=== PATIENT | female | born 1975 | race Caucasian/White ===

== ENCOUNTER 2017-11-25 16:25 | Emergency (ER) | payer OTHER ==
[~2017-11-25] VITALS: Ht 180.3 cm; Wt 181.4 kg
[2017-11-25] MEDS ORDERED: DIPHTH,PERTUSS(ACELL),TET TOX 0.5 ML DISP.SYRIN. VAX IM ONE (17:00)
[2017-11-25] MEDS ORDERED: IV NORMAL SALINE 1000ML BAG 1,000 ML IV ONE (17:00)
[2017-11-25] MEDS ORDERED: ACETAMINOPHEN 500 MG TABLET PO ONE (17:00)
--- NOTE | 2017-11-25 17:06 | RAD ---
AP portable chest radiograph 11/25/2017 Clinical History: Hypertension. An AP erect portable digital radiograph of the chest was obtained. No previous studies are available for comparison. The cardiac and mediastinal silhouettes are within normal limits in size and configuration. No acute pulmonary infiltrate is seen. No pleural effusion or pneumothorax is noted. Mild degenerative changes are seen involving the thoracic spine. IMPRESSION: No acute abnormality is seen. Electronically signed by: Gino Bermeo MD (11/25/2017 5:03 PM) [facility]
--- NOTE | 2017-11-25 17:12 | PHYS DOC ---
Past Medical History Past Medical History: Hypertension, Hypothyroid Alcohol Use: None Drug Use: None Adult General Chief Complaint Chief Complaint: HYPERTENSION HPI HPI Patient is a 42 year old female with history of hypertension, hypothyroidism, who presents today complaining of high blood pressure. Patient states she was at urgent care being evaluated for a skin infection on her right lower abdomen, patient states they took her blood pressure which was 184/110. Patient states they decided to send that to the emergency room to be evaluated. Patient states she is on high blood pressure medication, unknown name. She states she's had a headache for a couple days but it is not an unusual headache for her. She states she gets headaches intermittently throughout her life. She rates her headache as 5 out of 10 described it as throbbing and just generalized. Patient also states she has chronic chest pain. Patient states there is nothing unusual about her chest pain today. Describes the pain as sharp and generalized throughout the chest area. Denies anything exacerbating or making the pain better. She rates the chest pain as 5/10. Review of Systems Review of Systems Constitutional: Denies fever or chills [] Eyes: Denies change in visual acuity, redness, or eye pain [] HENT: Denies nasal congestion or sore throat [] Respiratory: Denies cough or shortness of breath [] Cardiovascular: Reports chest pain chronic in nature, high blood pressure GI: Denies abdominal pain, nausea, vomiting, bloody stools or diarrhea [] : Denies dysuria or hematuria [] Musculoskeletal: Denies back pain or joint pain [] Integument: Reports skin infection to the right lower abdomen Neurologic: Denies headache, focal weakness or sensory changes [] All other systems were reviewed and found to be within normal limits, except as documented in this note. Current Medications Current Medications Current Medications Medications (Trade) Dose Ordered Sig/Brandee Start Time Stop Time Status Last Admin Dose Admin Acetaminophen (Tylenol) 1,000 mg 1X ONCE 11/25/17 17:00 11/25/17 17:01 DC 11/25/17 17:34 1,000 MG Ceftriaxone Sodium 50 ml @ 100 mls/hr 1X ONCE 11/25/17 17:00 11/25/17 17:29 DC 11/25/17 17:35 100 MLS/HR Diphtheria/ Tetanus/Acell Pertussis (Boostrix) 0.5 ml ONCE ONCE 11/25/17 17:00 8/8/18 17:01 DC 11/25/17 17:36 0.5 ML Sodium Chloride 1,000 ml @ 1,000 mls/hr 1X ONCE 11/25/17 17:00 11/25/17 17:59 DC 11/25/17 17:34 1,000 MLS/HR Allergies Allergies Allergies Coded Allergies Type Severity Reaction Last Updated Verified amlodipine Allergy Intermediate Swelling 11/25/17 Yes biotin Allergy Intermediate Rash 11/25/17 Yes phentermine Adverse Reaction Mild agitation 11/25/17 Yes Physical Exam Physical Exam Constitutional: Obese patient. Well developed, well nourished, no acute distress , non-toxic appearance. [] HENT: Normocephalic, atraumatic, bilateral external ears normal, oropharynx moist, no oral exudates, nose normal. [] Eyes: PERRLA, EOMI, conjunctiva normal, no discharge. [] Neck: Normal range of motion, no tenderness, supple, no stridor. [] Cardiovascular:Heart rate regular rhythm, no murmur [] Lungs & Thorax: Bilateral breath sounds clear to auscultation [] Abdomen: Bowel sounds normal, soft, no tenderness, no masses, no pulsatile masses. [] Skin: Warm, dry, right lower abdomen with an erythematous lesion approximately 1 x 1 cm, there is an area of erythema surrounding this lesion consistent with skin peeling from tape that got infected. Patient states she had dressing over the area when she took the dressing off her skin peeled off and has turned red over time. Back: No tenderness, no CVA tenderness. [] Extremities: No tenderness, no cyanosis, no clubbing, ROM intact, no edema. [] Neurologic: Alert and oriented X 3, normal motor function, normal sensory function, no focal deficits noted. [] Psychologic: Affect normal, judgement normal, mood normal. [] Current Patient Data Vital Signs Vital Signs Date Time Temp Pulse Resp B/P (MAP) Pulse Ox O2 Delivery O2 Flow Rate FiO2 11/25/17 18:40 88 22 96 11/25/17 16:36 98.3 173/84 (113) Room Air 98.3 Lab Values Laboratory Tests Test 11/25/17 17:23 White Blood Count 16.6 x10^3/uL (4.0-11.0) H Red Blood Count 5.25 x10^6/uL (3.50-5.40) Hemoglobin 12.8 g/dL (12.0-15.5) Hematocrit 39.4 % (36.0-47.0) Mean Corpuscular Volume 75 fL (79-100) L Mean Corpuscular Hemoglobin 24 pg (25-35) L Mean Corpuscular Hemoglobin Concent 32 g/dL (31-37) Red Cell Distribution Width 16.3 % (11.5-14.5) H Platelet Count 331 x10^3/uL (140-400) Neutrophils (%) (Auto) 67 % (31-73) Lymphocytes (%) (Auto) 27 % (24-48) Monocytes (%) (Auto) 4 % (0-9) Eosinophils (%) (Auto) 1 % (0-3) Basophils (%) (Auto) 1 % (0-3) Neutrophils # (Auto) 11.2 x10^3uL (1.8-7.7) H Lymphocytes # (Auto) 4.5 x10^3/uL (1.0-4.8) Monocytes # (Auto) 0.6 x10^3/uL (0.0-1.1) Eosinophils # (Auto) 0.2 x10^3/uL (0.0-0.7) Basophils # (Auto) 0.1 x10^3/uL (0.0-0.2) Sodium Level 140 mmol/L (136-145) Potassium Level 3.6 mmol/L (3.5-5.1) Chloride Level 103 mmol/L (98-107) Carbon Dioxide Level 29 mmol/L (21-32) Anion Gap 8 (6-14) Blood Urea Nitrogen 13 mg/dL (7-20) Creatinine 0.9 mg/dL (0.6-1.0) Estimated GFR (Cockcroft-Gault) 69.3 Glucose Level 135 mg/dL (70-99) H Calcium Level 9.1 mg/dL (8.5-10.1) Magnesium Level 1.9 mg/dL (1.8-2.4) Creatine Kinase 74 U/L (26-192) Creatine Kinase MB (Mass) 0.5 ng/mL (0.0-3.6) Creatine Kinase MB Relative Index % (0-4) Troponin I Quantitative < 0.017 ng/mL (0.000-0.055) BM-Bts-E-Type Natriuretic Peptide 47 pg/mL (0-124) Thyroid Stimulating Hormone (TSH) 2.547 uIU/mL (0.358-3.74) Laboratory Tests 11/25/17 17:23 Laboratory Tests 11/25/17 17:23 EKG EKG 16:[address] Rodriguez sinus tachycardia heart rate 103 no STEMI Radiology/Procedures Radiology/Procedures []PROCEDURE: PORTABLE CHEST 1V AP portable chest radiograph 11/25/2017 Clinical History: Hypertension. An AP erect portable digital radiograph of the chest was obtained. No previous studies are available for comparison. The cardiac and mediastinal silhouettes are within normal limits in size and configuration. No acute pulmonary infiltrate is seen. No pleural effusion or pneumothorax is noted. Mild degenerative changes are seen involving the thoracic spine. IMPRESSION: No acute abnormality is seen. Electronically signed by: Gino Beach MD (11/25/2017 5:03 PM) [facility] DICTATED and SIGNED BY: GINO BEACH MD DATE: 11/25/171700 Course & Med Decision Making Course & Med Decision Making Pertinent Labs and Imaging studies reviewed. (See chart for details) This is a 42-year-old female patient presenting to the ED today to be evaluated for hypertension. He shouldn't was at urgent care being treated for skin infection when they noted her blood pressure was 184/110, she has history of hypertension. She was complaining of a headache which she states it's chronic as well as chest pain which she states is chronic as well. Blood pressure was 173/84 and arrival to the ED. EKG is negative. CBC with a WBC of 16.6, this is from the cellulitis infection patient has on the right lower abdomen. BMP with no acute findings. Urine analysis is negative for infection. Chest x-ray is negative. Blood pressure came down to 150s over 80s. Headache has resolved. Talked to patient about admission versus discharge. Patient states the chest pain as well as headache is chronic. She was discharged with Bactroban ointment for the cellulitis. She has cephalexin she got that from urgent care this morning. Tetanus updated. Provided return precautions. Dragon Disclaimer Dragon Disclaimer This electronic medical record was generated, in whole or in part, using a voice recognition dictation system. Departure Departure Impression: Primary Impression: Hypertension Additional Impressions: Cellulitis of abdominal wall Chronic chest pain Chronic headache Disposition: 01 HOME, SELF-CARE Condition: STABLE Referrals: UNKNOWN PCP NAME (PCP) Patient Instructions: Cellulitis, [id number], Hypertension Additional Instructions: You were evaluated in the emergency room for hypertension. Continue taking your medications as prescribed at home. Please use the prescribed cephalexin as well as the prescribed Bactroban ointment over year skin infection on the abdomen. Scripts Mupirocin Calcium (BACTROBAN CREAM) 15 Gm Cream..g. 1 GIANCARLO TP TID, #30 GM Prov: DENAE DANIEL APRN 11/25/17 Problem Qualifiers Primary Impression: Hypertension Hypertension type: unspecified Qualified Codes: I10 - Essential (primary) hypertension Additional Impressions: Chronic headache Headache type: unspecified Intractability: not intractable Qualified Codes : R51 - Headache DENAE DANIEL APRN Nov 25, 2017 17:12
[2017-11-25 17:32] LABS: BASO # 0.1 x10^3/uL (0.0-0.2); BASO % 1 % (0-3); EOS # 0.2 x10^3/uL (0.0-0.7); EOS % 1 % (0-3); HEMATOCRIT 39.4 % (36.0-47.0); HEMOGLOBIN 12.8 g/dL (12.0-15.5); LYMPH # 4.5 x10^3/uL (1.0-4.8); LYMPH % 27 % (24-48); MEAN CORPUSCULAR HEMOGLOBIN 24 pg (25-35); MEAN CORPUSCULAR HGB CONC 32 g/dL (31-37); MEAN CORPUSCULAR VOLUME 75 fL (79-100); MONO # 0.6 x10^3/uL (0.0-1.1); MONO % 4 % (0-9); NEUT # 11.2 x10^3uL (1.8-7.7); NEUT % 67 % (31-73); PLATELET COUNT 331 x10^3/uL (140-400); RED BLOOD COUNT 5.25 x10^6/uL (3.50-5.40); RED CELL DISTRIBUTION WIDTH 16.3 % (11.5-14.5); WHITE BLOOD COUNT 16.6 x10^3/uL (4.0-11.0)
[2017-11-25 17:55] LABS: CALCIUM 9.1 mg/dL (8.5-10.1); CREATININE 0.9 mg/dL (0.6-1.0); GFR 69.3; POTASSIUM 3.6 mmol/L (3.5-5.1)
[2017-11-25 17:56] LABS: MAGNESIUM 1.9 mg/dL (1.8-2.4)
[2017-11-25 18:10] LABS: CREATINE KINASE 74 U/L (26-192)
[2017-11-25 18:35] LABS: BILIRUBIN,URINE NEGATIVE (NEG); CLARITY,URINE CLEAR; COLOR,URINE YELLOW; NITRITE,URINE NEGATIVE (NEG); PROTEIN,URINE NEGATIVE (NEG-TRACE); UROBILINOGEN,URINE 0.2 mg/dL (0.2 mg/dL)
[2017-11-25 18:40] VITALS: BP 159/79
[2017-11-25 18:48] LABS: BARBITURATES NEG (NEG); BENZODIAZEPINES NEG (NEG); CANNABINOIDS POS (NEG); COCAINE NEG (NEG); METHADONE NEG (NEG); OPIATES POS (NEG); PHENCYCLIDINE NEG (NEG)
[2017-11-25 18:51] LABS: BACTERIA,URINE 0 /HPF (0-FEW); RBC,URINE 0 /HPF (0-2); SQUAMOUS EPITHELIAL CELL,UR FEW /LPF; WBC,URINE RARE /HPF (0-4)
[2017-11-25 18:52] LABS: AMPHETAMINE/METHAMPHETAMINE NEG (NEG)
[2017-11-25] MEDS ORDERED: MUPI15CR TP (18:53)
--- NOTE | 2017-11-26 07:38 | EKG ---
[facility] [address] [place] [address] Test Date: 2017-11-25 Test Time: 16:40:06 Pat Name: ELYSE AMBRIZ Department: Room: Gender: F Laborer Operator: : 1975 Requested By: DENAE DANIEL Order Number: [id number] Reading MD: Measurements Intervals [place] Rate: 103 P: 12 OR: 136 QRS: 30 QRSD: 84 T: 14 QT: 352 QTc: 463 Interpretive Statements SINUS TACHYCARDIA NO SPECIFIC ECG ABNORMALITIES RI6.01 No previous ECG available for comparison
== END 2017-11-25 19:07 | disposition home or self-care (01) ==
LOC: ER 16:25
DX: I10 Essential (primary) hypertension (principal); G89.29 Other chronic pain; R07.89 Other chest pain; R51 Headache; L03.311 Cellulitis of abdominal wall; E03.9 Hypothyroidism, unspecified
CPT/HCPCS: 36415; 71045; 80048; 80307; 81001; 82553; 83735; 83880; 84443; 84484; 85025; 90471; 90715; 93005; 96365; 99285; J0690; J7030; G0479

== ENCOUNTER → 2018-05-13 | Outpatient (CLI) | payer OTHER ==
[~2018-05-13] MED LIST: MUPI15CR TP
--- NOTE | 2018-05-13 15:20 | PCVCIMAG ---
APPROVED REPORT Study performed: 05/13/2018 13:42:01 EXAM: Comprehensive 2D, Doppler, and color-flow Echocardiogram Patient Location: Echo lab Status: routine BSA: 2.82 HR: 78 bpmBP: 144/100 mmHg Rhythm: NSR Other Information Study Quality: Adequate Technically limited study due to body habitus. Risk Factors: Cardiac Risk Factors: HTN Indications Hypertension/HDD 2D Dimensions IVSd: 13.45 (7-11mm)LVOT Diam: 20.00 (18-24mm) LVDd: 46.25 mm PWd: 13.42 (7-11mm)Ascending Ao: 32.55 (22-36mm) LVDs: 31.13 (25-40mm) Left Atrium: 38.92 (27-40mm) Aortic Root: 29.75 mm LV Single Plane 4CH: 50.64 % LV Single Plane 2CH: 46.04 % Biplane EF: 48.7 % Volumes Left Atrial Volume (Systole) Single Plane 4CH: 41.98 mLSingle Plane 2CH: 41.49 mL LA ESV Index: 18.00 mL/m2 Aortic Valve AoV Peak Vladimir.: 1.25 m/s AO Peak Gr.: 6.20 mmHgLVOT Max P.03 mmHg LVOT Max V: 1.00 m/s EMILIA Vmax: 2.55 cm2 Mitral Valve E/A Ratio: 1.5 MV Decel. Time: 176.61 ms MV E Max Vladimir.: 1.11 m/s MV A Vladimir.: 0.76 m/s IVRT: 62.28 ms Pulmonary Valve PV Peak Vladimir.: 0.91 m/sPV Peak Gr.: 3.31 mmHg Pulmonary Vein P Vein S: 0.34 m/sP Vein A: 0.31 m/s P Vein D: 0.35 m/sP Vein A Dur.: 100.3 msec P Vein S/D Ratio: 0.97 Tricuspid Valve RAP Estimate: 7.00 mmHg Left Ventricle The left ventricle is normal size. There is normal LV segmental wall motion. Moderate concentric left ventricular hypertrophy. Left ventricular systolic function is normal. The left ventricular ejection fraction is within the normal range. LVEF is 50-55%. The left ventricular diastolic function is normal. Right Ventricle The right ventricle is normal size. The right ventricular systolic function is normal. Atria The left atrium size is normal. The right atrium size is normal. Aortic Valve The aortic valve is normal in structure. No aortic regurgitation is present. There is no aortic valvular stenosis. Mitral Valve The mitral valve is normal in structure. Trace mitral regurgitation. No evidence of mitral valve stenosis. Tricuspid Valve The tricuspid valve is normal in structure. There is no tricuspid valve regurgitation noted. Pulmonic Valve The pulmonary valve is normal in structure. There is no pulmonic valvular regurgitation. Great Vessels The aortic root is normal in size. IVC is normal in size and collapses >50% with inspiration. Pericardium There is no pericardial effusion. <Conclusion> The left ventricle is normal size. Moderate concentric left ventricular hypertrophy. LVEF is 50-55%. The left ventricular diastolic function is normal. The right ventricle is normal size. The left atrium size is normal. The aortic valve is normal in structure. Trace mitral regurgitation. There is no tricuspid valve regurgitation noted. The aortic root is normal in size. There is no pericardial effusion.
== END | disposition home or self-care (01) ==
LOC: PCVCIMAG 13:45
PROVIDERS: ATTEND Family Medicine
DX: I10 Essential (primary) hypertension (principal)
CPT/HCPCS: 93306

== ENCOUNTER → 2019-01-14 | Outpatient (CLI) | payer OTHER ==
--- NOTE | 2019-01-18 14:12 | PCVCIMAG ---
APPROVED REPORT Study performed: 01/14/2019 10:39:58 EXAM: Comprehensive 2D, Doppler, and color-flow Echocardiogram Patient Location: Echo lab Status: routine BSA: 2.70 HR: 73 bpmBP: 140/90 mmHg Rhythm: NSR Other Information Study Quality: Adequate Technically limited study due to body habitus. Risk Factors: Cardiac Risk Factors: HTN Indications Dyspnea obesity, LVH 2D Dimensions IVSd: 13.88 (7-11mm) LVDd: 48.28 mm PWd: 13.23 (7-11mm)Ascending Ao: 34.50 (22-36mm) LVDs: 36.98 (25-40mm) Left Atrium: 38.79 (27-40mm) Aortic Root: 33.35 mm LV Single Plane 4CH: 47.59 % LV Single Plane 2CH: 50.13 % Biplane EF: 48.5 % Volumes Left Atrial Volume (Systole) Single Plane 4CH: 55.89 mLSingle Plane 2CH: 60.22 mL LA ESV Index: 22.00 mL/m2 Aortic Valve AoV Peak Vladimir.: 1.55 m/s AO Peak Gr.: 9.62 mmHgLVOT Max P.91 mmHg LVOT Max V: 1.11 m/s Mitral Valve E/A Ratio: 1.8 MV Decel. Time: 239.27 ms MV E Max Vladimir.: 0.86 m/s MV A Vladimir.: 0.48 m/s IVRT: 103.81 ms Pulmonary Valve PV Peak Vladimir.: 0.90 m/sPV Peak Gr.: 3.22 mmHg Pulmonary Vein P Vein S: 0.53 m/sP Vein A: 0.34 m/s P Vein D: 0.69 m/sP Vein A Dur.: 145.3 msec P Vein S/D Ratio: 0.77 Tricuspid Valve TR Peak Vladimir.: 2.91 m/s TR Peak Gr.: 33.81 mmHg Left Ventricle The left ventricle is normal size. There is normal LV segmental wall motion. Mild concentric left ventricular hypertrophy. Left ventricular systolic function is within lower limits of normal. LVEF is 50-55%. Right Ventricle The right ventricle is normal size. The right ventricular systolic function is normal. Atria The left atrium size is normal. The right atrium size is normal. Aortic Valve The aortic valve is normal in structure. No aortic regurgitation is present. There is no aortic valvular stenosis. Mitral Valve The mitral valve is normal in structure. There is no mitral valve regurgitation noted. No evidence of mitral valve stenosis. Tricuspid Valve The tricuspid valve is normal in structure. Mild tricuspid regurgitation with PAP of 41 mmHg. Pulmonic Valve The pulmonary valve is normal in structure. There is no pulmonic valvular regurgitation. Great Vessels The aortic root is normal in size. IVC is normal in size and collapses >50% with inspiration. Pericardium There is no pericardial effusion. There is no pleural effusion. <Conclusion> The left ventricle is normal size. Left ventricular systolic function is within lower limits of normal. LVEF is 50-55%. The right ventricle is normal size. The left atrium size is normal. The aortic valve is normal in structure. There is no mitral valve regurgitation noted. Mild tricuspid regurgitation with PAP of 41 mmHg. The aortic root is normal in size. There is no pericardial effusion.
== END | disposition home or self-care (01) ==
LOC: PCVCIMAG 10:51
PROVIDERS: ATTEND Internal Medicine Cardiovascular Disease
DX: I07.1 Rheumatic tricuspid insufficiency (principal); E66.9 Obesity, unspecified; I10 Essential (primary) hypertension
CPT/HCPCS: 93306

== ENCOUNTER 2019-01-21 18:18 | Inpatient (IN) | payer OTHER ==
[~2019-01-21] VITALS: Ht 182.9 cm; Wt 147.5 kg
[2019-01-21] MEDS ORDERED: fentaNYL PF VIAL 100 MCG/2 ML VIAL IV ONE (19:30)
[2019-01-21] MEDS ORDERED: IV NORMAL SALINE 1000ML BAG 1,000 ML IV ONE (19:30)
[2019-01-21] MEDS ORDERED: IV NORMAL SALINE 500ML BAG 500 ML IV ONE (19:30)
[2019-01-21] MEDS ORDERED: fentaNYL PF VIAL 100 MCG/2 ML VIAL ONE (19:36)
[2019-01-21 19:38] LABS: BASO % 0 % (0-3); EOS # 0.1 x10^3/uL (0.0-0.7); EOS % 1 % (0-3); HEMATOCRIT 37.2 % (36.0-47.0); HEMOGLOBIN 12.1 g/dL (12.0-15.5); LYMPH # 3.6 x10^3/uL (1.0-4.8); LYMPH % 19 % (24-48); MEAN CORPUSCULAR HEMOGLOBIN 26 pg (25-35); MEAN CORPUSCULAR HGB CONC 33 g/dL (31-37); MEAN CORPUSCULAR VOLUME 80 fL (79-100); MONO # 1.5 x10^3/uL (0.0-1.1); MONO % 8 % (0-9); NEUT # 14.3 x10^3/uL (1.8-7.7); NEUT % 73 % (31-73); PLATELET COUNT 407 x10^3/uL (140-400); RED BLOOD COUNT 4.62 x10^6/uL (3.50-5.40); RED CELL DISTRIBUTION WIDTH 14.5 % (11.5-14.5); WHITE BLOOD COUNT 19.6 x10^3/uL (4.0-11.0)
[2019-01-21 19:45] LABS: PROTHROMBIN TIME PATIENT 15.4 SEC (11.7-14.0)
[2019-01-21 19:46] LABS: CALCIUM 9.8 mg/dL (8.5-10.1); GFR 27.5; POTASSIUM 3.7 mmol/L (3.5-5.1)
[2019-01-21 19:52] LABS: ALBUMIN 2.6 g/dL (3.4-5.0); ALBUMIN/GLOBULIN RATIO 0.5 (1.0-1.7); TOTAL BILIRUBIN 0.3 mg/dL (0.2-1.0); TOTAL PROTEIN 7.5 g/dL (6.4-8.2)
[2019-01-21 19:54] LABS: BILIRUBIN,URINE SMALL (NEG); CLARITY,URINE CLEAR; COLOR,URINE AMBER; NITRITE,URINE NEGATIVE (NEG); PROTEIN,URINE 30 mg/dL (NEG-TRACE)
[2019-01-21 19:59] LABS: SQUAMOUS EPITHELIAL CELL,UR MANY /LPF
--- NOTE | 2019-01-21 19:59 | PHYS DOC ---
Past Medical History Past Medical History: Hypertension, Hypothyroid Past Surgical History: Other Additional Past Surgical Histo: GASTRIC SLEEVE Alcohol Use: None Drug Use: None Adult General Chief Complaint Chief Complaint: SHORTNESS OF BREATH HPI HPI Patient is a 43 year old female who is one month status post a gastric sleeve at [facility] in [place] coming in basically referred in by primary doctor due to a finding of fluid on the lungs on her recent CT scan that was done on Thursday in addition the white blood cell count was up in the kidney function was decreased patient has a past medical history of obesity hypertension or allergic to Zoloft and amlodipine meds now include doxycycline Bystolic and hydrochlorothiazide patient has had nausea no fever she also is noting some dull bilateral flank pain comes and goes better with lying flat dry cough no fever that she knows of she has had decreased by mouth intake positive nausea no vomiting no diarrhea. Review of Systems Review of Systems Constitutional: Denies fever or chills [] Eyes: Denies change in visual acuity, redness, or eye pain [] HENT Respiratory: Neurologic: Denies headache, focal weakness or sensory changes [] Endocrine: Denies polyuria or polydipsia [] All other systems were reviewed and found to be within normal limits, except as documented in this note. Current Medications Current Medications Current Medications Medications (Trade) Dose Ordered Sig/Brandee Start Time Stop Time Status Last Admin Dose Admin Ceftriaxone Sodium (Rocephin) 1 gm 1X ONCE 01/21/19 20:00 01/21/19 20:07 DC Fentanyl Citrate (Fentanyl 2ml Vial) 50 mcg PRN Q1HR PRN 01/21/19 21:00 01/22/19 20:59 UNV Sodium Chloride 1,000 ml @ 100 mls/hr Q10H 01/21/19 20:51 01/22/19 20:50 UNV Allergies Allergies Allergies Coded Allergies Type Severity Reaction Last Updated Verified amlodipine Allergy Intermediate Swelling 11/25/17 Yes biotin Allergy Intermediate Rash 11/25/17 Yes phentermine Adverse Reaction Mild agitation 11/25/17 Yes Physical Exam Physical Exam Constitutional: Well developed, well nourished, no acute distress, non-toxic appearance. [] HENT: Normocephalic, atraumatic, bilateral external ears normal, dry oropharynx, no oral exudates, nose normal. [] Eyes: PERRLA, EOMI, conjunctiva normal, no discharge. [] Neck: Normal range of motion, no tenderness, supple, no stridor. [] Cardiovascular:Heart rate regular rhythm, no murmur [] Lungs & Thorax: Decreased process the left lung base Abdomen: Bowel sounds normal, soft, no tenderness, no masses, no pulsatile masses. [] Skin: Warm, dry, no erythema, no rash. [] Back: No tenderness, no CVA tenderness. [] Extremities: No tenderness, no cyanosis, no clubbing, ROM intact, no edema. [] Neurologic: Alert and oriented X 3, normal motor function, normal sensory function, no focal deficits noted. [] Psychologic: Affect normal, judgement normal, mood normal. [] Current Patient Data Vital Signs Vital Signs Date Time Temp Pulse Resp B/P (MAP) Pulse Ox O2 Delivery O2 Flow Rate FiO2 01/21/19 19:42 18 97 Room Air 01/21/19 19:00 98.7 80 88/58 (68) 98.7 Lab Values Laboratory Tests Test 01/21/19 19:15 01/21/19 19:40 01/21/19 19:46 White Blood Count 19.6 x10^3/uL (4.0-11.0) H Red Blood Count 4.62 x10^6/uL (3.50-5.40) Hemoglobin 12.1 g/dL (12.0-15.5) Hematocrit 37.2 % (36.0-47.0) Mean Corpuscular Volume 80 fL (79-100) Mean Corpuscular Hemoglobin 26 pg (25-35) Mean Corpuscular Hemoglobin Concent 33 g/dL (31-37) Red Cell Distribution Width 14.5 % (11.5-14.5) Platelet Count 407 x10^3/uL (140-400) H Neutrophils (%) (Auto) 73 % (31-73) Lymphocytes (%) (Auto) 19 % (24-48) L Monocytes (%) (Auto) 8 % (0-9) Eosinophils (%) (Auto) 1 % (0-3) Basophils (%) (Auto) 0 % (0-3) Neutrophils # (Auto) 14.3 x10^3/uL (1.8-7.7) H Lymphocytes # (Auto) 3.6 x10^3/uL (1.0-4.8) Monocytes # (Auto) 1.5 x10^3/uL (0.0-1.1) H Eosinophils # (Auto) 0.1 x10^3/uL (0.0-0.7) Basophils # (Auto) 0.0 x10^3/uL (0.0-0.2) Segmented Neutrophils % 74 % (35-66) H Band Neutrophils % 1 % (0-9) Lymphocytes % 17 % (24-48) L Monocytes % 8 % (0-10) Platelet Estimate Adequate (ADEQUATE) Prothrombin Time 15.4 SEC (11.7-14.0) H Prothrombin Time INR 1.3 (0.8-1.1) H Sodium Level 138 mmol/L (136-145) Potassium Level 3.7 mmol/L (3.5-5.1) Chloride Level 100 mmol/L (98-107) Carbon Dioxide Level 26 mmol/L (21-32) Anion Gap 12 (6-14) Blood Urea Nitrogen 53 mg/dL (7-20) H Creatinine 2.0 mg/dL (0.6-1.0) H Estimated GFR (Cockcroft-Gault) 27.5 BUN/Creatinine Ratio 27 (6-20) H Glucose Level 103 mg/dL (70-99) H Lactic Acid Level 0.6 mmol/L (0.4-2.0) Calcium Level 9.8 mg/dL (8.5-10.1) Total Bilirubin 0.3 mg/dL (0.2-1.0) Aspartate Amino Transferase (AST) 11 U/L (15-37) L Alanine Aminotransferase (ALT) 15 U/L (14-59) Alkaline Phosphatase 120 U/L (46-116) H Troponin I Quantitative < 0.017 ng/mL (0.000-0.055) BN-Moy-O-Type Natriuretic Peptide 232 pg/mL (0-124) H Total Protein 7.5 g/dL (6.4-8.2) Albumin 2.6 g/dL (3.4-5.0) L Albumin/Globulin Ratio 0.5 (1.0-1.7) L Lipase 105 U/L (73-393) Urine Collection Type Unknown Urine Color Kristel Urine Clarity Clear Urine pH 5.0 Urine Specific [place] >=1.030 Urine Protein 30 mg/dL (NEG-TRACE) Urine Glucose (UA) Negative mg/dL (NEG) Urine Ketones (Stick) Negative mg/dL (NEG) Urine Blood Negative (NEG) Urine Nitrite Negative (NEG) Urine Bilirubin Small (NEG) Urine Urobilinogen Dipstick 1.0 mg/dL (0.2 mg/dL) Urine Leukocyte Esterase Negative (NEG) Urine RBC 1-2 /HPF (0-2) Urine WBC 11-20 /HPF (0-4) Urine Squamous Epithelial Cells Many /LPF Urine Amorphous Sediment Present /HPF Urine Bacteria Many /HPF (0-FEW) Urine Mucus Marked /LPF Urine Yeast Present /HPF POC Urine HCG, Qualitative Hcg negative (Negative) Laboratory Tests 01/21/19 19:15 Laboratory Tests 01/21/19 19:15 EKG EKG []Normal sinus rhythm rate of 69 no acute ischemic changes noted QTC 411 interpreted by me the timing encounter Radiology/Procedures Radiology/Procedures [] Impressions: Chest x-ray pleural effusion noted. ct scan disc uploaded into system no final read due to outside facility but she told me no pe according to her physician Course & Med Decision Making Course & Med Decision Making Pertinent Labs and Imaging studies reviewed. (See chart for details) []43 yo f one month s/p gastric sleeve bp 88 systolic left side pleural effusion could be parapneumonic Noted by PET scan was 19,000 creatinine is 2.0 patient likely is having symptomatic pneumonia after recent gastric sleeve surgery CT scan with by mouth contrast is currently pending the patient is not tender in the abdomen Antibiotics given patient's blood pressures improved to 1:15 systolic after IV fluids lactic acid was normal I spoke with Dr. agarwal at 8:45 PM plan to admit for the above pneumonia CT scan pending Also MAY Liat UTI as well. Dragon Disclaimer Dragon Disclaimer This electronic medical record was generated, in whole or in part, using a voice recognition dictation system. Departure Departure Impression: Primary Impression: Pleural effusion Disposition: 09 ADMITTED INPATIENT Admitting Physician: KEIKO Condition: STABLE Referrals: CHUCHO BOWMAN DO (PCP) KATELYN MARTINS MD Jan 21, 2019 19:59
[2019-01-21 20:00] LABS: AMORPHOUS SEDIMENT,UR PRESENT /HPF; BACTERIA,URINE MANY /HPF (0-FEW); YEAST,URINE PRESENT /HPF
[2019-01-21] MEDS ORDERED: cefTRIAXone IV Push 1 GM VIAL. IVP ONE (20:00)
[2019-01-21 20:20] LABS: % BANDS 1 % (0-9); % LYMPHS 17 % (24-48); % MONOS 8 % (0-10); % SEGS 74 % (35-66)
[2019-01-21 20:21] LABS: PLT ESTIMATE ADEQUATE (ADEQUATE)
--- NOTE | 2019-01-21 20:42 | RAD ---
PORTABLE CHEST 1V Clinical History: Dyspnea Technique: AP view of the chest was obtained at 01/21/2019 7:27 PM. Comparison: None. Findings: The heart is mildly enlarged. The pulmonary vasculature is normal. There is hazy opacity in the left lung base and obscuration of the left hemidiaphragm. Impression: Mild left effusion with adjacent infiltrate. Electronically signed by: Jb Senior III, MD (01/21/2019 8:39 PM) [id number]
[2019-01-21] MEDS ORDERED: AZITHRMYCN 500MG IVPB FOR OMNI 250 ML IV ONE (21:00)
[2019-01-21] MEDS ORDERED: CONTRAST GIVEN. MC PRN (21:45)
[2019-01-21] MEDS ORDERED: IOHEXOL 240 MG/ML 50ML VIAL. PO ONE (21:45)
[2019-01-21] MEDS: IV NORMAL SALINE 1000ML BAG 1,000 ML IV SCH (21:49)
[2019-01-21] MEDS: fentaNYL PF VIAL 100 MCG/2 ML VIAL IV PRN (21:59)
--- NOTE | 2019-01-21 22:01 | RAD ---
Abdominal and Pelvis CT, Without Contrast: History: Status post gastric bypass, elevated white blood cell count. Comparison: None. Procedure: Axial images are obtained of the abdomen and pelvis, with oral contrast only. CT Abdomen without Contrast: Findings: There is multiple foci of air around the stomach. There is air and contrast seen above the stomach just under the diaphragm. There is no air anteriorly in the abdomen. There is a suture line along the stomach. There is mild left effusion with adjacent infiltrate. Evaluation of solid organs is limited without contrast. Liver: Normal. Spleen: Normal. Pancreas: Normal. Adrenal Glands: Normal. Kidneys: Normal. There is no free air or free fluid. There is no lymphadenopathy. CT Pelvis without Contrast: Findings: The urinary bladder appears normal. There is no free fluid. There is no lymphadenopathy. The appendix is normal. Impression: 1. Air-fluid collection above the proximal stomach with contrast is consistent with a small perforation. There is no wall to suggest an abscess. 2. Mild left pleural effusion with adjacent infiltrate. PQRS Compliance Statement: One or more of the following individualized dose reduction techniques were utilized for this examination: 1. Automated exposure control 2. Adjustment of the mA and/or kV according to patient size 3. Use of iterative reconstruction technique Electronically signed by: Jb Senior III, MD (01/21/2019 9:58 PM) [facility]
[2019-01-21] MEDS ORDERED: METOCLOPRAMIDE HCL 10 MG/2 ML VIAL. IVP ONE (22:15)
[2019-01-21] MEDS ORDERED: PIPERACILLIN/TAZOBACTAM 3.375 GM in IV NORMAL SALINE 50ML 50 ML IV ONE (22:30)
--- NOTE | 2019-01-21 23:30 | NUR ---
The patient, ELYSE AMBRIZ, 43 y/o, F admitted by AARON CARRERA MD, was given written information regarding hospital policies, unit procedures and contact persons. Valuables were checked and left with patient.
[2019-01-22] VITALS (11 sets, daily range): BP systolic 114–146; BP diastolic 48–84
[2019-01-22] MEDS: fentaNYL PF VIAL 100 MCG/2 ML VIAL IV PRN ×7 (00:04→19:20)
[2019-01-22] MEDS ORDERED: INFLUENZA VAX SCREEN BY RX. MC PRN (01:15)
[2019-01-22] MEDS ORDERED: PROMETHAZINE 12.5 MG TABLET. PO PRN (05:15)
[2019-01-22 05:32] LABS: BASO # 0.1 x10^3/uL (0.0-0.2); BASO % 0 % (0-3); EOS # 0.1 x10^3/uL (0.0-0.7); EOS % 1 % (0-3); HEMATOCRIT 35.1 % (36.0-47.0); HEMOGLOBIN 11.5 g/dL (12.0-15.5); LYMPH # 2.7 x10^3/uL (1.0-4.8); LYMPH % 17 % (24-48); MEAN CORPUSCULAR HEMOGLOBIN 26 pg (25-35); MEAN CORPUSCULAR HGB CONC 33 g/dL (31-37); MEAN CORPUSCULAR VOLUME 81 fL (79-100); MONO # 1.1 x10^3/uL (0.0-1.1); MONO % 7 % (0-9); NEUT # 11.7 x10^3/uL (1.8-7.7); NEUT % 75 % (31-73); PLATELET COUNT 342 x10^3/uL (140-400); RED BLOOD COUNT 4.36 x10^6/uL (3.50-5.40); RED CELL DISTRIBUTION WIDTH 14.5 % (11.5-14.5); WHITE BLOOD COUNT 15.7 x10^3/uL (4.0-11.0)
[2019-01-22 05:53] LABS: CALCIUM 9.6 mg/dL (8.5-10.1); CREATININE 1.4 mg/dL (0.6-1.0); GFR 41.4; POTASSIUM 3.5 mmol/L (3.5-5.1)
[2019-01-22] MEDS: IV NORMAL SALINE 1000ML BAG 1,000 ML IV SCH ×3 (08:54→20:31)
[2019-01-22] MEDS ORDERED: FLU VAX QS 2019-20 (36MOS+)/PF 0.5 ML SYRINGE. VAX IM ONE (09:00)
--- NOTE | 2019-01-22 09:50 | CONS ---
DATE OF CONSULTATION: PULMONARY CONSULTATION ATTENDING PHYSICIAN: Dr. Andrea. REASON FOR CONSULTATION: Pleural effusion. HISTORY OF PRESENT ILLNESS: This is a 43-year-old morbidly obese patient with a BMI of 46. The patient had gastric sleeve surgery [facility] about a month ago. She has been having some dull abdominal pain recently with occasional shortness of breath. She was told that she had some fluid in the lungs on the recent CT scan that was done on Thursday along with mildly elevated white cell count. She was seen in the Emergency Room where his chest x-ray and CT abdomen and pelvis was performed. I have reviewed both of them. There is a tiny amount of left pleural effusion, which is not much significance. There was air and contrast seen above the stomach adjacent to the diaphragm and a small perforation in the proximal stomach was reported. There was no abscess. Her white cell count was 19.6. The patient was given Zosyn. I have been asked to see her for further evaluation. She states that sometimes she has difficulty in taking deep breaths and she gets some chest discomfort and on the left neck as well. She has been relatively active since her surgery. No history of thromboembolic disease. She has minimal tobacco history for the last 10 years. PAST MEDICAL HISTORY: Significant for hypertension and hypothyroidism. PAST SURGICAL HISTORY: Gastric sleeve surgery about a month ago. REVIEW OF SYSTEMS: Ten-point system obtained. Pertinent positives discussed in my history of present illness, otherwise noncontributory. All systems that were negative were reviewed as well. ALLERGIES: AMLODIPINE, BIOTIN, ONDANSETRON, PHENTERMINE. MEDICATIONS: That were in the hospital were reviewed. PHYSICAL EXAMINATION: VITAL SIGNS: On examination reviewed. Afebrile, pulse oximetry 94% on room air. NECK: Supple. LUNGS: Clear with slightly diminished breath sounds on the left base. CARDIOVASCULAR: With a regular rate. ABDOMEN: Soft, obese, mildly tender. EXTREMITIES: With trace pitting edema. LABORATORY DATA: Reviewed. White cell count down to 15.7, hemoglobin 11.5 and platelets are 342. BUN is now 40 and creatinine 1.4 from 53 and 2.0. IMPRESSION: 1. Small pleural effusion related to the abdominal process involving the left lower chest. This is not of any clinical significance and does not need any intervention. 2. Recent gastric sleeve surgery and now comes in with abdominal pain and small perforation in the proximal stomach. General Surgery, Dr. Donaldson was consulted in the ER and he will follow. 3. Chest discomfort upon taking deep breaths, likely related to the abdominal pain. However, we will do a V/Q scan. 4. Acute kidney injury, now improving. RECOMMENDATIONS: 1. From a pulmonary standpoint, she is on room air and seems to be stable. 2. We will obtain V/Q scan to rule out any thromboembolic disease. 3. Follow Surgery recommendations. 4. Follow renal recommendations. 5. Hold off on any Lovenox for DVT prophylaxis until surgeon clears her for any surgical intervention. We will follow along with you. Discussed with RN and Dr Buitrago MARIA TERESA HENDRIX MD DR: NOEMÍ/nts JOB#: [id number] / [id number] KAMLA
--- NOTE | 2019-01-22 10:32 | PDOC2 ---
CONSULT Date of Consult Date of Consult DATE: 01/22/19 TIME: 10:20 Reason for Consult Reason for Consult: perforated viscous Referring Physician Referring Physician: Dr Cook Identification/Chief Complaint Chief Complaint difficulty breathing when supine, left chest and shoulder pain Source Source: Chart review, Patient History of Present Illness Reason for Visit: Sammy is a 43 yo female who had a gastric sleeve done in November of this year. She did well for the first few weeks, but since has had difficulty with left sided chest and shoulder pain as well as problems breathing when supine. Her po intake has decreased. Past Medical History Cardiovascular: HTN Pulmonary: Other (left sided effusion) Endocrine: Hypothyroidism Past Surgical History Past Surgical History: Other (gastric sleeve) Family History Family History: No Significant Social History No ALCOHOL: none Current Problem List Problem List Problems Medical Problems: (1) Pleural effusion Status: Acute Current Medications Current Medications Current Medications Sodium Chloride 1,000 ml @ 1,000 mls/hr 1X ONCE IV Last administered on 01/21/19at 19:43; Start 01/21/19 at 19:30; Stop 01/21/19 at 20:29; Status DC Sodium Chloride 500 ml @ 500 mls/hr 1X ONCE IV Last administered on 01/21/19at 19:43; Start 01/21/19 at 19:30; Stop 01/21/19 at 20:29; Status DC Fentanyl Citrate (Fentanyl 2ml Vial) 50 mcg 1X ONCE IV Last administered on 01/21/19at 19:42; Start 01/21/19 at 19:30; Stop 01/21/19 at 19:37; Status DC Fentanyl Citrate (Fentanyl 2ml Vial) 100 mcg STK-MED ONCE .ROUTE ; Start 01/21/19 at 19:36; Stop 01/21/19 at 19:37; Status DC Ceftriaxone Sodium (Rocephin) 1 gm 1X ONCE IVP Last administered on 01/21/19at 21:47; Start 01/21/19 at 20:00; Stop 01/21/19 at 20:07; Status DC Fentanyl Citrate (Fentanyl 2ml Vial) 50 mcg PRN Q1HR PRN IV PAIN Last administered on 01/22/19at 08:54; Start 01/21/19 at 21:00; Stop 01/22/19 at 20:59 Sodium Chloride 1,000 ml @ 100 mls/hr Q10H IV Last administered on 01/22/19at 08:54; Start 01/21/19 at 20:51; Stop 01/22/19 at 20:50 Azithromycin 250 ml @ 250 mls/hr 1X ONCE IV Last administered on 01/21/19at 21:49; Start 01/21/19 at 21:00; Stop 01/21/19 at 21:59; Status DC Iohexol (Omnipaque 240 Mg/ml) 30 ml 1X ONCE PO Last administered on 01/21/19at 21:49; Start 01/21/19 at 21:45; Stop 01/21/19 at 21:46; Status DC Info (CONTRAST GIVEN -- Rx MONITORING) 1 each PRN DAILY PRN MC SEE COMMENTS; Start 01/21/19 at 21:45; Stop 01/23/19 at 21:44 Metoclopramide HCl (Reglan Vial) 10 mg 1X ONCE IVP ; Start 01/21/19 at 22:15; Stop 01/21/19 at 22:16; Status DC Piperacillin Sod/ Tazobactam Sod 3.375 gm/Sodium Chloride 50 ml @ 100 mls/hr 1X ONCE IV Last administered on 01/21/19at 23:13; Start 01/21/19 at 22:30; Stop 01/21/19 at 22:59; Status DC Influenza Virus Vaccine Quadrival (Afluria Quad 2019-20 (3yr Up) Syringe) 0.5 ml ONCE ONCE VAX IM ; Start 01/22/19 at 09:00; Stop 01/22/19 at 09:01; Status DC Info (FLU VACCINE SCREEN per RX) 1 each PRN 1X PRN MC SEE COMMENTS; Start 01/22/19 at 01:15; Status Cancel Lorazepam (Ativan Inj) 1 mg PRN Q4HRS PRN IVP ANXIETY / AGITATION Last administered on 01/22/19at 05:22; Start 01/22/19 at 05:15 Promethazine HCl (Phenergan) 25 mg PRN Q6HRS PRN PO NAUSEA/VOMITING; Start 01/22/19 at 05:15 Active Scripts Active Bactroban Cream (Mupirocin) 15 Gm Cream..g. 1 Monica TP TID Allergies Allergies: Coded Allergies: amlodipine (Verified Allergy, Intermediate, Swelling, 11/25/17) biotin (Verified Allergy, Intermediate, Rash, 11/25/17) ondansetron (Verified Allergy, Unknown, 01/21/19) phentermine (Verified Adverse Reaction, Mild, agitation, 11/25/17) ROS Respiratory: YES: Shortness of breath (when supine) Cardiovascular: yes Chest Pain Gastrointestinal: Yes Nausea, Yes Abdominal Pain Physical Exam General: Alert, Oriented X3, No acute distress HEENT: Atraumatic Lungs: Normal air movement Heart: Regular rate Abdomen: Soft, Other (mildy TTP in the LUQ) Vitals VITALS Vital Signs Date Time Temp Pulse Resp B/P (MAP) Pulse Ox O2 Delivery O2 Flow Rate FiO2 01/22/19 08:54 Room Air 01/22/19 07:00 98.6 89 15 131/65 (87) 94 98.6 Labs Labs Laboratory Tests Test 01/21/19 19:15 01/21/19 19:40 01/21/19 19:46 01/22/19 04:15 White Blood Count 19.6 x10^3/uL (4.0-11.0) 15.7 x10^3/uL (4.0-11.0) Red Blood Count 4.62 x10^6/uL (3.50-5.40) 4.36 x10^6/uL (3.50-5.40) Hemoglobin 12.1 g/dL (12.0-15.5) 11.5 g/dL (12.0-15.5) Hematocrit 37.2 % (36.0-47.0) 35.1 % (36.0-47.0) Mean Corpuscular Volume 80 fL (79-100) 81 fL (79-100) Mean Corpuscular Hemoglobin 26 pg (25-35) 26 pg (25-35) Mean Corpuscular Hemoglobin Concent 33 g/dL (31-37) 33 g/dL (31-37) Red Cell Distribution Width 14.5 % (11.5-14.5) 14.5 % (11.5-14.5) Platelet Count 407 x10^3/uL (140-400) 342 x10^3/uL (140-400) Neutrophils (%) (Auto) 73 % (31-73) 75 % (31-73) Lymphocytes (%) (Auto) 19 % (24-48) 17 % (24-48) Monocytes (%) (Auto) 8 % (0-9) 7 % (0-9) Eosinophils (%) (Auto) 1 % (0-3) 1 % (0-3) Basophils (%) (Auto) 0 % (0-3) 0 % (0-3) Neutrophils # (Auto) 14.3 x10^3/uL (1.8-7.7) 11.7 x10^3/uL (1.8-7.7) Lymphocytes # (Auto) 3.6 x10^3/uL (1.0-4.8) 2.7 x10^3/uL (1.0-4.8) Monocytes # (Auto) 1.5 x10^3/uL (0.0-1.1) 1.1 x10^3/uL (0.0-1.1) Eosinophils # (Auto) 0.1 x10^3/uL (0.0-0.7) 0.1 x10^3/uL (0.0-0.7) Basophils # (Auto) 0.0 x10^3/uL (0.0-0.2) 0.1 x10^3/uL (0.0-0.2) Segmented Neutrophils % 74 % (35-66) Band Neutrophils % 1 % (0-9) Lymphocytes % 17 % (24-48) Monocytes % 8 % (0-10) Platelet Estimate Adequate (ADEQUATE) Prothrombin Time 15.4 SEC (11.7-14.0) Prothromb Time International Ratio 1.3 (0.8-1.1) Sodium Level 138 mmol/L (136-145) 141 mmol/L (136-145) Potassium Level 3.7 mmol/L (3.5-5.1) 3.5 mmol/L (3.5-5.1) Chloride Level 100 mmol/L (98-107) 103 mmol/L (98-107) Carbon Dioxide Level 26 mmol/L (21-32) 25 mmol/L (21-32) Anion Gap 12 (6-14) 13 (6-14) Blood Urea Nitrogen 53 mg/dL (7-20) 40 mg/dL (7-20) Creatinine 2.0 mg/dL (0.6-1.0) 1.4 mg/dL (0.6-1.0) Estimated GFR (Cockcroft-Gault) 27.5 41.4 BUN/Creatinine Ratio 27 (6-20) Glucose Level 103 mg/dL (70-99) 94 mg/dL (70-99) Lactic Acid Level 0.6 mmol/L (0.4-2.0) Calcium Level 9.8 mg/dL (8.5-10.1) 9.6 mg/dL (8.5-10.1) Total Bilirubin 0.3 mg/dL (0.2-1.0) Aspartate Amino Transf (AST/SGOT) 11 U/L (15-37) Alanine Aminotransferase (ALT/SGPT) 15 U/L (14-59) Alkaline Phosphatase 120 U/L (46-116) Troponin I Quantitative < 0.017 ng/mL (0.000-0.055) KZ-Nmz-C-Type Natriuretic Peptide 232 pg/mL (0-124) Total Protein 7.5 g/dL (6.4-8.2) Albumin 2.6 g/dL (3.4-5.0) Albumin/Globulin Ratio 0.5 (1.0-1.7) Lipase 105 U/L (73-393) Urine Collection Type Unknown Urine Color Kristel Urine Clarity Clear Urine pH 5.0 Urine Specific Levasy >=1.030 Urine Protein 30 mg/dL (NEG-TRACE) Urine Glucose (UA) Negative mg/dL (NEG) Urine Ketones (Stick) Negative mg/dL (NEG) Urine Blood Negative (NEG) Urine Nitrite Negative (NEG) Urine Bilirubin Small (NEG) Urine Urobilinogen Dipstick 1.0 mg/dL (0.2 mg/dL) Urine Leukocyte Esterase Negative (NEG) Urine RBC 1-2 /HPF (0-2) Urine WBC 11-20 /HPF (0-4) Urine Squamous Epithelial Cells Many /LPF Urine Amorphous Sediment Present /HPF Urine Bacteria Many /HPF (0-FEW) Urine Mucus Marked /LPF Urine Yeast Present /HPF Bedside Urine HCG, Qualitative Hcg negative (Negative) Laboratory Tests Test 01/21/19 19:15 01/21/19 19:40 01/21/19 19:46 01/22/19 04:15 White Blood Count 19.6 x10^3/uL (4.0-11.0) 15.7 x10^3/uL (4.0-11.0) Red Blood Count 4.62 x10^6/uL (3.50-5.40) 4.36 x10^6/uL (3.50-5.40) Hemoglobin 12.1 g/dL (12.0-15.5) 11.5 g/dL (12.0-15.5) Hematocrit 37.2 % (36.0-47.0) 35.1 % (36.0-47.0) Mean Corpuscular Volume 80 fL (79-100) 81 fL (79-100) Mean Corpuscular Hemoglobin 26 pg (25-35) 26 pg (25-35) Mean Corpuscular Hemoglobin Concent 33 g/dL (31-37) 33 g/dL (31-37) Red Cell Distribution Width 14.5 % (11.5-14.5) 14.5 % (11.5-14.5) Platelet Count 407 x10^3/uL (140-400) 342 x10^3/uL (140-400) Neutrophils (%) (Auto) 73 % (31-73) 75 % (31-73) Lymphocytes (%) (Auto) 19 % (24-48) 17 % (24-48) Monocytes (%) (Auto) 8 % (0-9) 7 % (0-9) Eosinophils (%) (Auto) 1 % (0-3) 1 % (0-3) Basophils (%) (Auto) 0 % (0-3) 0 % (0-3) Neutrophils # (Auto) 14.3 x10^3/uL (1.8-7.7) 11.7 x10^3/uL (1.8-7.7) Lymphocytes # (Auto) 3.6 x10^3/uL (1.0-4.8) 2.7 x10^3/uL (1.0-4.8) Monocytes # (Auto) 1.5 x10^3/uL (0.0-1.1) 1.1 x10^3/uL (0.0-1.1) Eosinophils # (Auto) 0.1 x10^3/uL (0.0-0.7) 0.1 x10^3/uL (0.0-0.7) Basophils # (Auto) 0.0 x10^3/uL (0.0-0.2) 0.1 x10^3/uL (0.0-0.2) Segmented Neutrophils % 74 % (35-66) Band Neutrophils % 1 % (0-9) Lymphocytes % 17 % (24-48) Monocytes % 8 % (0-10) Platelet Estimate Adequate (ADEQUATE) Prothrombin Time 15.4 SEC (11.7-14.0) Prothromb Time International Ratio 1.3 (0.8-1.1) Sodium Level 138 mmol/L (136-145) 141 mmol/L (136-145) Potassium Level 3.7 mmol/L (3.5-5.1) 3.5 mmol/L (3.5-5.1) Chloride Level 100 mmol/L (98-107) 103 mmol/L (98-107) Carbon Dioxide Level 26 mmol/L (21-32) 25 mmol/L (21-32) Anion Gap 12 (6-14) 13 (6-14) Blood Urea Nitrogen 53 mg/dL (7-20) 40 mg/dL (7-20) Creatinine 2.0 mg/dL (0.6-1.0) 1.4 mg/dL (0.6-1.0) Estimated GFR (Cockcroft-Gault) 27.5 41.4 BUN/Creatinine Ratio 27 (6-20) Glucose Level 103 mg/dL (70-99) 94 mg/dL (70-99) Lactic Acid Level 0.6 mmol/L (0.4-2.0) Calcium Level 9.8 mg/dL (8.5-10.1) 9.6 mg/dL (8.5-10.1) Total Bilirubin 0.3 mg/dL (0.2-1.0) Aspartate Amino Transf (AST/SGOT) 11 U/L (15-37) Alanine Aminotransferase (ALT/SGPT) 15 U/L (14-59) Alkaline Phosphatase 120 U/L (46-116) Troponin I Quantitative < 0.017 ng/mL (0.000-0.055) GF-Cxt-Y-Type Natriuretic Peptide 232 pg/mL (0-124) Total Protein 7.5 g/dL (6.4-8.2) Albumin 2.6 g/dL (3.4-5.0) Albumin/Globulin Ratio 0.5 (1.0-1.7) Lipase 105 U/L (73-393) Urine Collection Type Unknown Urine Color Kristel Urine Clarity Clear Urine pH 5.0 Urine Specific Levasy >=1.030 Urine Protein 30 mg/dL (NEG-TRACE) Urine Glucose (UA) Negative mg/dL (NEG) Urine Ketones (Stick) Negative mg/dL (NEG) Urine Blood Negative (NEG) Urine Nitrite Negative (NEG) Urine Bilirubin Small (NEG) Urine Urobilinogen Dipstick 1.0 mg/dL (0.2 mg/dL) Urine Leukocyte Esterase Negative (NEG) Urine RBC 1-2 /HPF (0-2) Urine WBC 11-20 /HPF (0-4) Urine Squamous Epithelial Cells Many /LPF Urine Amorphous Sediment Present /HPF Urine Bacteria Many /HPF (0-FEW) Urine Mucus Marked /LPF Urine Yeast Present /HPF Bedside Urine HCG, Qualitative Hcg negative (Negative) Images Images CT chest,abdomen,pelvis done recently is reviewed Assessment/Plan Assessment/Plan perforated viscous s/p gastric sleeve HPT hypothyroid AKD dehydration supportive care with gut rest, IV fluids, Abx goal is to stabilize to a point where she can follow up with her bariatric surgeon d/w IR, no acute recs d/w patient will follow Thanks for consult GAURANG MENDOZA MD Jan 22, 2019 10:32
--- NOTE | 2019-01-22 10:37 | PDOC1 ---
History and Physical Date of Admission Date of Admission DATE: 01/22/19 TIME: 10:36 Identification/Chief Complaint Chief Complaint 43 year old female who is one month status post a gastric sleeve at [facility], PRESENTS WITH SUSPECTED PROX STOMACH PERF had surgery AT [facility] IN [place] Past Medical History Cardiovascular: HTN Pulmonary: Other (left sided effusion) Endocrine: Hypothyroidism Past Surgical History Past Surgical History: Other (gastric sleeve) Family History Family History: No Significant, High Cholestrol Social History Smoke: <1 pack per day ALCOHOL: none Drugs: None Current Problem List Problem List Problems Medical Problems: (1) Pleural effusion Status: Acute Current Medications Current Medications Current Medications Sodium Chloride 1,000 ml @ 1,000 mls/hr 1X ONCE IV Last administered on 01/21/19 19:43; Start 01/21/19 at 19:30; Stop 01/21/19 at 20:29; Status DC Sodium Chloride 500 ml @ 500 mls/hr 1X ONCE IV Last administered on 01/21/19at 19:43; Start 01/21/19 at 19:30; Stop 01/21/19 at 20:29; Status DC Fentanyl Citrate (Fentanyl 2ml Vial) 50 mcg 1X ONCE IV Last administered on 01/21/19at 19:42; Start 01/21/19 at 19:30; Stop 01/21/19 at 19:37; Status DC Fentanyl Citrate (Fentanyl 2ml Vial) 100 mcg STK-MED ONCE .ROUTE ; Start 01/21/19 at 19:36; Stop 01/21/19 at 19:37; Status DC Ceftriaxone Sodium (Rocephin) 1 gm 1X ONCE IVP Last administered on 01/21/19at 21:47; Start 01/21/19 at 20:00; Stop 01/21/19 at 20:07; Status DC Fentanyl Citrate (Fentanyl 2ml Vial) 50 mcg PRN Q1HR PRN IV PAIN Last administered on 01/22/19 08:54; Start 01/21/19 at 21:00; Stop 01/22/19 at 20:59 Sodium Chloride 1,000 ml @ 100 mls/hr Q10H IV Last administered on 01/22/19 08:54; Start 01/21/19 at 20:51; Stop 01/22/19 at 20:50 Azithromycin 250 ml @ 250 mls/hr 1X ONCE IV Last administered on 10/4/19at 21:49; Start 01/21/19 at 21:00; Stop 01/21/19 at 21:59; Status DC Iohexol (Omnipaque 240 Mg/ml) 30 ml 1X ONCE PO Last administered on 01/21/19at 21:49; Start 01/21/19 at 21:45; Stop 01/21/19 at 21:46; Status DC Info (CONTRAST GIVEN -- Rx MONITORING) 1 each PRN DAILY PRN MC SEE COMMENTS; Start 01/21/19 at 21:45; Stop 01/23/19 at 21:44 Metoclopramide HCl (Reglan Vial) 10 mg 1X ONCE IVP ; Start 01/21/19 at 22:15; Stop 01/21/19 at 22:16; Status DC Piperacillin Sod/ Tazobactam Sod 3.375 gm/Sodium Chloride 50 ml @ 100 mls/hr 1X ONCE IV Last administered on 01/21/19at 23:13; Start 01/21/19 at 22:30; Stop 01/21/19 at 22:59; Status DC Influenza Virus Vaccine Quadrival (Afluria Quad 2019-20 (3yr Up) Syringe) 0.5 ml ONCE ONCE VAX IM ; Start 01/22/19 at 09:00; Stop 01/22/19 at 09:01; Status DC Info (FLU VACCINE SCREEN per RX) 1 each PRN 1X PRN MC SEE COMMENTS; Start 01/22/19 at 01:15; Status Cancel Lorazepam (Ativan Inj) 1 mg PRN Q4HRS PRN IVP ANXIETY / AGITATION Last administered on 01/22/19at 05:22; Start 01/22/19 at 05:15 Promethazine HCl (Phenergan) 25 mg PRN Q6HRS PRN PO NAUSEA/VOMITING; Start 01/22/19 at 05:15 Active Scripts Active Bactroban Cream (Mupirocin) 15 Gm Cream..g. 1 Monica TP TID Allergies Allergies: Coded Allergies: amlodipine (Verified Allergy, Intermediate, Swelling, 11/25/17) biotin (Verified Allergy, Intermediate, Rash, 11/25/17) ondansetron (Verified Allergy, Unknown, 01/21/19) phentermine (Verified Adverse Reaction, Mild, agitation, 11/25/17) ROS Review of System Review of Systems Review of Systems Constitutional: Denies fever or chills [] Eyes: Denies change in visual acuity, redness, or eye pain [] HENT Respiratory: Neurologic: Denies headache, focal weakness or sensory changes [] Endocrine: Denies polyuria or polydipsia [] 14 PT systems were reviewed and found to be within normal limits, except as documented PSYCHOLOGICAL ROS: YES: Anxiety; No: Behavioral Disorder, Concentration difficultie, Decreased libido, Depression, Disorientation, Hallucinations, Hostility, Irritablity, Memory difficulties, Mood Swings, Obsessive thoughts, Physical abuse, Sexual abuse, Sleep disturbances, Suicidal ideation, Other ALLERGY AND IMMUNOLOGY: No: Hives, Insect Bite Sensitivity, Itchy/Watery Eyes, Nasal Congestion, Post Nasal Drip, Seasonal Allergies, Other Hematological and Lymphatic: No: Bleeding Problems, Blood Clots, Blood Transfusions, Brusing, Night Sweats, Pallor, Swollen Lymph Nodes, Other Respiratory: YES: Shortness of breath Gastrointestinal: Yes Abdominal Pain Musculoskeletal: No Gait Disturbance, No Joint Pain, No Joint Stiffness, No Joint Swelling, No Muscle Pain, No Muscular Weakness, No Pain In:, No Swelling In:, No Other Physical Exam Physical Exam Physical Exam Physical Exam Constitutional: Well developed, well nourished, no acute distress, non-toxic appearance. [] HENT: Normocephalic, atraumatic, bilateral external ears normal, dry oropharynx, no oral exudates, nose normal. [] Eyes: PERRLA, EOMI, conjunctiva normal, no discharge. [] Neck: Normal range of motion, no tenderness, supple, no stridor. [] Cardiovascular:Heart rate regular rhythm, no murmur [] Lungs & Thorax: Decreased process the left lung base Abdomen: Bowel sounds normal, soft, no tenderness, no masses, no pulsatile masses. [] Skin: Warm, dry, no erythema, no rash. [] Back: No tenderness, no CVA tenderness. [] Extremities: No tenderness, no cyanosis, no clubbing, ROM intact, no edema. [] Neurologic: Alert and oriented X 3, normal motor function, normal sensory function, no focal deficits noted. [] Psychologic: Affect normal, judgement normal, mood normal. [] General: Alert, Oriented X3, Cooperative, No acute distress HEENT: PERRLA, EOMI, Mucous membr. moist/pink Lungs: Clear to auscultation Heart: RRR Breasts: Not examined Abdomen: Normal bowel sounds PELVIC: Examination not indicated Extremities: No cyanosis Neuro: Normal speech, Cranial nerves 3-12 NL Psych/Mental Status: Mental status NL, Mood NL Vitals Vitals Vital Signs Date Time Temp Pulse Resp B/P (MAP) Pulse Ox O2 Delivery O2 Flow Rate FiO2 01/22/19 08:54 Room Air 01/22/19 07:00 98.6 89 15 131/65 (87) 94 98.6 Labs Labs Laboratory Tests Test 01/21/19 19:15 01/21/19 19:40 01/21/19 19:46 01/22/19 04:15 White Blood Count 19.6 x10^3/uL (4.0-11.0) 15.7 x10^3/uL (4.0-11.0) Red Blood Count 4.62 x10^6/uL (3.50-5.40) 4.36 x10^6/uL (3.50-5.40) Hemoglobin 12.1 g/dL (12.0-15.5) 11.5 g/dL (12.0-15.5) Hematocrit 37.2 % (36.0-47.0) 35.1 % (36.0-47.0) Mean Corpuscular Volume 80 fL (79-100) 81 fL (79-100) Mean Corpuscular Hemoglobin 26 pg (25-35) 26 pg (25-35) Mean Corpuscular Hemoglobin Concent 33 g/dL (31-37) 33 g/dL (31-37) Red Cell Distribution Width 14.5 % (11.5-14.5) 14.5 % (11.5-14.5) Platelet Count 407 x10^3/uL (140-400) 342 x10^3/uL (140-400) Neutrophils (%) (Auto) 73 % (31-73) 75 % (31-73) Lymphocytes (%) (Auto) 19 % (24-48) 17 % (24-48) Monocytes (%) (Auto) 8 % (0-9) 7 % (0-9) Eosinophils (%) (Auto) 1 % (0-3) 1 % (0-3) Basophils (%) (Auto) 0 % (0-3) 0 % (0-3) Neutrophils # (Auto) 14.3 x10^3/uL (1.8-7.7) 11.7 x10^3/uL (1.8-7.7) Lymphocytes # (Auto) 3.6 x10^3/uL (1.0-4.8) 2.7 x10^3/uL (1.0-4.8) Monocytes # (Auto) 1.5 x10^3/uL (0.0-1.1) 1.1 x10^3/uL (0.0-1.1) Eosinophils # (Auto) 0.1 x10^3/uL (0.0-0.7) 0.1 x10^3/uL (0.0-0.7) Basophils # (Auto) 0.0 x10^3/uL (0.0-0.2) 0.1 x10^3/uL (0.0-0.2) Segmented Neutrophils % 74 % (35-66) Band Neutrophils % 1 % (0-9) Lymphocytes % 17 % (24-48) Monocytes % 8 % (0-10) Platelet Estimate Adequate (ADEQUATE) Prothrombin Time 15.4 SEC (11.7-14.0) Prothromb Time International Ratio 1.3 (0.8-1.1) Sodium Level 138 mmol/L (136-145) 141 mmol/L (136-145) Potassium Level 3.7 mmol/L (3.5-5.1) 3.5 mmol/L (3.5-5.1) Chloride Level 100 mmol/L (98-107) 103 mmol/L (98-107) Carbon Dioxide Level 26 mmol/L (21-32) 25 mmol/L (21-32) Anion Gap 12 (6-14) 13 (6-14) Blood Urea Nitrogen 53 mg/dL (7-20) 40 mg/dL (7-20) Creatinine 2.0 mg/dL (0.6-1.0) 1.4 mg/dL (0.6-1.0) Estimated GFR (Cockcroft-Gault) 27.5 41.4 BUN/Creatinine Ratio 27 (6-20) Glucose Level 103 mg/dL (70-99) 94 mg/dL (70-99) Lactic Acid Level 0.6 mmol/L (0.4-2.0) Calcium Level 9.8 mg/dL (8.5-10.1) 9.6 mg/dL (8.5-10.1) Total Bilirubin 0.3 mg/dL (0.2-1.0) Aspartate Amino Transf (AST/SGOT) 11 U/L (15-37) Alanine Aminotransferase (ALT/SGPT) 15 U/L (14-59) Alkaline Phosphatase 120 U/L (46-116) Troponin I Quantitative < 0.017 ng/mL (0.000-0.055) PA-Irw-F-Type Natriuretic Peptide 232 pg/mL (0-124) Total Protein 7.5 g/dL (6.4-8.2) Albumin 2.6 g/dL (3.4-5.0) Albumin/Globulin Ratio 0.5 (1.0-1.7) Lipase 105 U/L (73-393) Urine Collection Type Unknown Urine Color Kristel Urine Clarity Clear Urine pH 5.0 Urine Specific [place] >=1.030 Urine Protein 30 mg/dL (NEG-TRACE) Urine Glucose (UA) Negative mg/dL (NEG) Urine Ketones (Stick) Negative mg/dL (NEG) Urine Blood Negative (NEG) Urine Nitrite Negative (NEG) Urine Bilirubin Small (NEG) Urine Urobilinogen Dipstick 1.0 mg/dL (0.2 mg/dL) Urine Leukocyte Esterase Negative (NEG) Urine RBC 1-2 /HPF (0-2) Urine WBC 11-20 /HPF (0-4) Urine Squamous Epithelial Cells Many /LPF Urine Amorphous Sediment Present /HPF Urine Bacteria Many /HPF (0-FEW) Urine Mucus Marked /LPF Urine Yeast Present /HPF Bedside Urine HCG, Qualitative Hcg negative (Negative) Laboratory Tests Test 01/21/19 19:15 01/21/19 19:40 01/21/19 19:46 01/22/19 04:15 White Blood Count 19.6 x10^3/uL (4.0-11.0) 15.7 x10^3/uL (4.0-11.0) Red Blood Count 4.62 x10^6/uL (3.50-5.40) 4.36 x10^6/uL (3.50-5.40) Hemoglobin 12.1 g/dL (12.0-15.5) 11.5 g/dL (12.0-15.5) Hematocrit 37.2 % (36.0-47.0) 35.1 % (36.0-47.0) Mean Corpuscular Volume 80 fL (79-100) 81 fL (79-100) Mean Corpuscular Hemoglobin 26 pg (25-35) 26 pg (25-35) Mean Corpuscular Hemoglobin Concent 33 g/dL (31-37) 33 g/dL (31-37) Red Cell Distribution Width 14.5 % (11.5-14.5) 14.5 % (11.5-14.5) Platelet Count 407 x10^3/uL (140-400) 342 x10^3/uL (140-400) Neutrophils (%) (Auto) 73 % (31-73) 75 % (31-73) Lymphocytes (%) (Auto) 19 % (24-48) 17 % (24-48) Monocytes (%) (Auto) 8 % (0-9) 7 % (0-9) Eosinophils (%) (Auto) 1 % (0-3) 1 % (0-3) Basophils (%) (Auto) 0 % (0-3) 0 % (0-3) Neutrophils # (Auto) 14.3 x10^3/uL (1.8-7.7) 11.7 x10^3/uL (1.8-7.7) Lymphocytes # (Auto) 3.6 x10^3/uL (1.0-4.8) 2.7 x10^3/uL (1.0-4.8) Monocytes # (Auto) 1.5 x10^3/uL (0.0-1.1) 1.1 x10^3/uL (0.0-1.1) Eosinophils # (Auto) 0.1 x10^3/uL (0.0-0.7) 0.1 x10^3/uL (0.0-0.7) Basophils # (Auto) 0.0 x10^3/uL (0.0-0.2) 0.1 x10^3/uL (0.0-0.2) Segmented Neutrophils % 74 % (35-66) Band Neutrophils % 1 % (0-9) Lymphocytes % 17 % (24-48) Monocytes % 8 % (0-10) Platelet Estimate Adequate (ADEQUATE) Prothrombin Time 15.4 SEC (11.7-14.0) Prothromb Time International Ratio 1.3 (0.8-1.1) Sodium Level 138 mmol/L (136-145) 141 mmol/L (136-145) Potassium Level 3.7 mmol/L (3.5-5.1) 3.5 mmol/L (3.5-5.1) Chloride Level 100 mmol/L (98-107) 103 mmol/L (98-107) Carbon Dioxide Level 26 mmol/L (21-32) 25 mmol/L (21-32) Anion Gap 12 (6-14) 13 (6-14) Blood Urea Nitrogen 53 mg/dL (7-20) 40 mg/dL (7-20) Creatinine 2.0 mg/dL (0.6-1.0) 1.4 mg/dL (0.6-1.0) Estimated GFR (Cockcroft-Gault) 27.5 41.4 BUN/Creatinine Ratio 27 (6-20) Glucose Level 103 mg/dL (70-99) 94 mg/dL (70-99) Lactic Acid Level 0.6 mmol/L (0.4-2.0) Calcium Level 9.8 mg/dL (8.5-10.1) 9.6 mg/dL (8.5-10.1) Total Bilirubin 0.3 mg/dL (0.2-1.0) Aspartate Amino Transf (AST/SGOT) 11 U/L (15-37) Alanine Aminotransferase (ALT/SGPT) 15 U/L (14-59) Alkaline Phosphatase 120 U/L (46-116) Troponin I Quantitative < 0.017 ng/mL (0.000-0.055) TW-Kfa-I-Type Natriuretic Peptide 232 pg/mL (0-124) Total Protein 7.5 g/dL (6.4-8.2) Albumin 2.6 g/dL (3.4-5.0) Albumin/Globulin Ratio 0.5 (1.0-1.7) Lipase 105 U/L (73-393) Urine Collection Type Unknown Urine Color Kristel Urine Clarity Clear Urine pH 5.0 Urine Specific [place] >=1.030 Urine Protein 30 mg/dL (NEG-TRACE) Urine Glucose (UA) Negative mg/dL (NEG) Urine Ketones (Stick) Negative mg/dL (NEG) Urine Blood Negative (NEG) Urine Nitrite Negative (NEG) Urine Bilirubin Small (NEG) Urine Urobilinogen Dipstick 1.0 mg/dL (0.2 mg/dL) Urine Leukocyte Esterase Negative (NEG) Urine RBC 1-2 /HPF (0-2) Urine WBC 11-20 /HPF (0-4) Urine Squamous Epithelial Cells Many /LPF Urine Amorphous Sediment Present /HPF Urine Bacteria Many /HPF (0-FEW) Urine Mucus Marked /LPF Urine Yeast Present /HPF Bedside Urine HCG, Qualitative Hcg negative (Negative) Images Images SEX: F EXAM STATUS: ADM IN ORD. PHYSICIAN: MARIA TERESA HENDRIX MD REASON: CP PROCEDURE: LUNG VENT/PERFUSION SCAN(VQ) Lung scan 01/22/2019 CLINICAL HISTORY: Chest pain. Shortness of breath. History of recent gastric sleeve surgery. TECHNIQUE: After the intravenous administration of 30 mCi of xenon-133 gas, ventilation images of both lungs were obtained using the gamma camera. After intravenous ministration of 6.6 mCi technetium 99m MAA, perfusion images of both lungs were obtained using the gamma camera. FINDINGS: Comparison is made to portable chest radiograph dated 01/21/2019. This demonstrates borderline cardiomegaly. There is a small left pleural effusion. Slightly heterogeneous ventilation and perfusion to both lungs is seen, left greater than right. No unmatched perfusion defect is noted. These findings are consistent with a low probability study for pulmonary embolism. IMPRESSION: Low probability study. Electronically signed by: Gino Bermeo MD (01/22/2019 11:11 AM) [facility] DICTATED and SIGNED BY: GINO BERMEO MD DATE: 01/22/19 1111 Air-fluid collection above the proximal stomach with contrast is consistent with a small perforation. There is no wall to suggest an abscess. VTE Prophylaxis Ordered VTE Prophylaxis Devices: Yes VTE Pharmacological Prophylaxi: Yes Assessment/Plan Assessment/Plan Impression: Pleural effusion Recent gastric sleeve surgery with abdominal pain and small perforation in the proximal stomach. General Surgery, Dr. Donaldson was consulted in the ER and he will follow. Air-fluid collection above the proximal stomach with contrast is consistent with a small perforation. There is no wall to suggest an abscess. NOHELIA MORBID OBESITY ADMITTED NPO plan transfer to [facility] D/W NURSING [employer]IAL INSURANCE SPECIALIST 1042 BY PHONE NEPHROLOGY CONSULT iv fluid support dvt prophylaxis PULM CONSULT GEN SURG CONSULT 74 min pt exam, chart review, > 50% of time spent with exam, chart review, pt care coordination Air-fluid collection above the proximal stomach with contrast is consistent with a small perforation. There is no wall to suggest an abscess. GEORGIANA WEAVER MD Jan 22, 2019 10:37
--- NOTE | 2019-01-22 10:56 | PDOC2 ---
CONSULT Date of Consult Date of Consult DATE: 01/22/19 TIME: 10:50 Reason for Consult Reason for Consult: NOHELIA Referring Physician Referring Physician: DEANDRE Identification/Chief Complaint Chief Complaint SOB AND CHEST PAIN WITH BREATHING Source Source: Chart review, Patient History of Present Illness Reason for Visit: THIS IS A 43 YR OLD WITH HX OF GASTRIC SLEEVE IN NOVEMBER THIS YEAR. HAS BEEN DOING WELL BUT LAST FEW WEEKS HAS HAD SOME SOB AND LEFT SIDED CHEST PAIN WITH DEEP BREATHS. NOTED TO HAVE A SMALL PLEURAL EFFUSION. PULMONARY SEEING PT NOW. GEN SURGERY ALSO SEEING PT. NO CKD NOTED. STATED THAT HER PO INTAKE HAS BEEN POOR AND SHE HAS HAD SOFT STOOLS SINCE HER SURGERY. SHE HAS A CR OF 2.0. SHE HAS HX OF HTN AND HAS BEEN TAKING HER HCTZ PART OF HER MEDICAL REGIMEN. NO NSAIDS OR NEPHROTOXINS NOTED. HEMODYNAMICALLY STABLE Past Medical History Cardiovascular: HTN Pulmonary: Other (left sided effusion) Endocrine: Hypothyroidism Past Surgical History Past Surgical History: Other (gastric sleeve) Family History Family History: No Significant, High Cholestrol Social History No ALCOHOL: none Drugs: None Lives: with Family Current Problem List Problem List Problems Medical Problems: (1) Pleural effusion Status: Acute Current Medications Current Medications Current Medications Sodium Chloride 1,000 ml @ 1,000 mls/hr 1X ONCE IV Last administered on 01/21/19at 19:43; Start 01/21/19 at 19:30; Stop 01/21/19 at 20:29; Status DC Sodium Chloride 500 ml @ 500 mls/hr 1X ONCE IV Last administered on 01/21/19at 19:43; Start 01/21/19 at 19:30; Stop 01/21/19 at 20:29; Status DC Fentanyl Citrate (Fentanyl 2ml Vial) 50 mcg 1X ONCE IV Last administered on 01/21/19at 19:42; Start 01/21/19 at 19:30; Stop 01/21/19 at 19:37; Status DC Fentanyl Citrate (Fentanyl 2ml Vial) 100 mcg STK-MED ONCE .ROUTE ; Start 9 at 19:36; Stop 01/21/19 at 19:37; Status DC Ceftriaxone Sodium (Rocephin) 1 gm 1X ONCE IVP Last administered on 01/21/19at 21:47; Start 01/21/19 at 20:00; Stop 01/21/19 at 20:07; Status DC Fentanyl Citrate (Fentanyl 2ml Vial) 50 mcg PRN Q1HR PRN IV PAIN Last administered on 01/22/19 08:54; Start 01/21/19 at 21:00; Stop 01/22/19 at 20:59 Sodium Chloride 1,000 ml @ 100 mls/hr Q10H IV Last administered on 01/22/19at 08:54; Start 01/21/19 at 20:51; Stop 01/22/19 at 20:50 Azithromycin 250 ml @ 250 mls/hr 1X ONCE IV Last administered on 01/21/19at 21:49; Start 01/21/19 at 21:00; Stop 01/21/19 at 21:59; Status DC Iohexol (Omnipaque 240 Mg/ml) 30 ml 1X ONCE PO Last administered on 01/21/19at 21:49; Start 01/21/19 at 21:45; Stop 01/21/19 at 21:46; Status DC Info (CONTRAST GIVEN -- Rx MONITORING) 1 each PRN DAILY PRN MC SEE COMMENTS; Start 01/21/19 at 21:45; Stop 01/23/19 at 21:44 Metoclopramide HCl (Reglan Vial) 10 mg 1X ONCE IVP ; Start 01/21/19 at 22:15; Stop 01/21/19 at 22:16; Status DC Piperacillin Sod/ Tazobactam Sod 3.375 gm/Sodium Chloride 50 ml @ 100 mls/hr 1X ONCE IV Last administered on 01/21/19at 23:13; Start 01/21/19 at 22:30; Stop 01/21/19 at 22:59; Status DC Influenza Virus Vaccine Quadrival (Afluria Quad 2019-20 (3yr Up) Syringe) 0.5 ml ONCE ONCE VAX IM ; Start 01/22/19 at 09:00; Stop 01/22/19 at 09:01; Status DC Info (FLU VACCINE SCREEN per RX) 1 each PRN 1X PRN MC SEE COMMENTS; Start 01/22/19 at 01:15; Status Cancel Lorazepam (Ativan Inj) 1 mg PRN Q4HRS PRN IVP ANXIETY / AGITATION Last administered on 01/22/19at 05:22; Start 01/22/19 at 05:15 Promethazine HCl (Phenergan) 25 mg PRN Q6HRS PRN PO NAUSEA/VOMITING; Start 01/22/19 at 05:15 Active Scripts Active Bactroban Cream (Mupirocin) 15 Gm Cream..g. 1 Monica TP TID Allergies Allergies: Coded Allergies: amlodipine (Verified Allergy, Intermediate, Swelling, 11/25/17) biotin (Verified Allergy, Intermediate, Rash, 11/25/17) ondansetron (Verified Allergy, Unknown, 01/21/19) phentermine (Verified Adverse Reaction, Mild, agitation, 11/25/17) ROS General: YES: Fatigue, Appetite PSYCHOLOGICAL ROS: YES: Anxiety, Depression Eyes: Yes Decreased vision HEENT: YES: Anita ALLERGY AND IMMUNOLOGY: YES: Seasonal Allergies Respiratory: YES: Cough, Shortness of breath Cardiovascular: yes Chest Pain Gastrointestinal: Yes Diarrhea Musculoskeletal: Yes Muscular Weakness Neurological: Yes Weakness Skin: Yes Dry Skin Physical Exam General: Alert, Oriented X3, Cooperative, No acute distress, mild distress HEENT: Atraumatic, PERRLA, EOMI, Mucous membr. moist/pink Lungs: Clear to auscultation Heart: Normal S1 Abdomen: Normal bowel sounds, Soft Extremities: No cyanosis Skin: No breakdown Neuro: Normal speech, Sensation intact Psych/Mental Status: Mental status NL, Mood NL MUSCULOSKELETAL: No joint tenderness, No deformity, No swelling Vitals VITALS Vital Signs Date Time Temp Pulse Resp B/P (MAP) Pulse Ox O2 Delivery O2 Flow Rate FiO2 01/22/19 08:54 Room Air 01/22/19 07:00 98.6 89 15 131/65 (87) 94 98.6 Labs Labs Laboratory Tests Test 01/21/19 19:15 01/21/19 19:40 01/21/19 19:46 01/22/19 04:15 White Blood Count 19.6 x10^3/uL (4.0-11.0) 15.7 x10^3/uL (4.0-11.0) Red Blood Count 4.62 x10^6/uL (3.50-5.40) 4.36 x10^6/uL (3.50-5.40) Hemoglobin 12.1 g/dL (12.0-15.5) 11.5 g/dL (12.0-15.5) Hematocrit 37.2 % (36.0-47.0) 35.1 % (36.0-47.0) Mean Corpuscular Volume 80 fL (79-100) 81 fL (79-100) Mean Corpuscular Hemoglobin 26 pg (25-35) 26 pg (25-35) Mean Corpuscular Hemoglobin Concent 33 g/dL (31-37) 33 g/dL (31-37) Red Cell Distribution Width 14.5 % (11.5-14.5) 14.5 % (11.5-14.5) Platelet Count 407 x10^3/uL (140-400) 342 x10^3/uL (140-400) Neutrophils (%) (Auto) 73 % (31-73) 75 % (31-73) Lymphocytes (%) (Auto) 19 % (24-48) 17 % (24-48) Monocytes (%) (Auto) 8 % (0-9) 7 % (0-9) Eosinophils (%) (Auto) 1 % (0-3) 1 % (0-3) Basophils (%) (Auto) 0 % (0-3) 0 % (0-3) Neutrophils # (Auto) 14.3 x10^3/uL (1.8-7.7) 11.7 x10^3/uL (1.8-7.7) Lymphocytes # (Auto) 3.6 x10^3/uL (1.0-4.8) 2.7 x10^3/uL (1.0-4.8) Monocytes # (Auto) 1.5 x10^3/uL (0.0-1.1) 1.1 x10^3/uL (0.0-1.1) Eosinophils # (Auto) 0.1 x10^3/uL (0.0-0.7) 0.1 x10^3/uL (0.0-0.7) Basophils # (Auto) 0.0 x10^3/uL (0.0-0.2) 0.1 x10^3/uL (0.0-0.2) Segmented Neutrophils % 74 % (35-66) Band Neutrophils % 1 % (0-9) Lymphocytes % 17 % (24-48) Monocytes % 8 % (0-10) Platelet Estimate Adequate (ADEQUATE) Prothrombin Time 15.4 SEC (11.7-14.0) Prothromb Time International Ratio 1.3 (0.8-1.1) Sodium Level 138 mmol/L (136-145) 141 mmol/L (136-145) Potassium Level 3.7 mmol/L (3.5-5.1) 3.5 mmol/L (3.5-5.1) Chloride Level 100 mmol/L (98-107) 103 mmol/L (98-107) Carbon Dioxide Level 26 mmol/L (21-32) 25 mmol/L (21-32) Anion Gap 12 (6-14) 13 (6-14) Blood Urea Nitrogen 53 mg/dL (7-20) 40 mg/dL (7-20) Creatinine 2.0 mg/dL (0.6-1.0) 1.4 mg/dL (0.6-1.0) Estimated GFR (Cockcroft-Gault) 27.5 41.4 BUN/Creatinine Ratio 27 (6-20) Glucose Level 103 mg/dL (70-99) 94 mg/dL (70-99) Lactic Acid Level 0.6 mmol/L (0.4-2.0) Calcium Level 9.8 mg/dL (8.5-10.1) 9.6 mg/dL (8.5-10.1) Total Bilirubin 0.3 mg/dL (0.2-1.0) Aspartate Amino Transf (AST/SGOT) 11 U/L (15-37) Alanine Aminotransferase (ALT/SGPT) 15 U/L (14-59) Alkaline Phosphatase 120 U/L (46-116) Troponin I Quantitative < 0.017 ng/mL (0.000-0.055) [id number]-Vmb-H-Type Natriuretic Peptide 232 pg/mL (0-124) Total Protein 7.5 g/dL (6.4-8.2) Albumin 2.6 g/dL (3.4-5.0) Albumin/Globulin Ratio 0.5 (1.0-1.7) Lipase 105 U/L (73-393) Urine Collection Type Unknown Urine Color Kristel Urine Clarity Clear Urine pH 5.0 Urine Specific [place] >=1.030 Urine Protein 30 mg/dL (NEG-TRACE) Urine Glucose (UA) Negative mg/dL (NEG) Urine Ketones (Stick) Negative mg/dL (NEG) Urine Blood Negative (NEG) Urine Nitrite Negative (NEG) Urine Bilirubin Small (NEG) Urine Urobilinogen Dipstick 1.0 mg/dL (0.2 mg/dL) Urine Leukocyte Esterase Negative (NEG) Urine RBC 1-2 /HPF (0-2) Urine WBC 11-20 /HPF (0-4) Urine Squamous Epithelial Cells Many /LPF Urine Amorphous Sediment Present /HPF Urine Bacteria Many /HPF (0-FEW) Urine Mucus Marked /LPF Urine Yeast Present /HPF Bedside Urine HCG, Qualitative Hcg negative (Negative) Laboratory Tests Test 01/21/19 19:15 01/21/19 19:40 01/21/19 19:46 01/22/19 04:15 White Blood Count 19.6 x10^3/uL (4.0-11.0) 15.7 x10^3/uL (4.0-11.0) Red Blood Count 4.62 x10^6/uL (3.50-5.40) 4.36 x10^6/uL (3.50-5.40) Hemoglobin 12.1 g/dL (12.0-15.5) 11.5 g/dL (12.0-15.5) Hematocrit 37.2 % (36.0-47.0) 35.1 % (36.0-47.0) Mean Corpuscular Volume 80 fL (79-100) 81 fL (79-100) Mean Corpuscular Hemoglobin 26 pg (25-35) 26 pg (25-35) Mean Corpuscular Hemoglobin Concent 33 g/dL (31-37) 33 g/dL (31-37) Red Cell Distribution Width 14.5 % (11.5-14.5) 14.5 % (11.5-14.5) Platelet Count 407 x10^3/uL (140-400) 342 x10^3/uL (140-400) Neutrophils (%) (Auto) 73 % (31-73) 75 % (31-73) Lymphocytes (%) (Auto) 19 % (24-48) 17 % (24-48) Monocytes (%) (Auto) 8 % (0-9) 7 % (0-9) Eosinophils (%) (Auto) 1 % (0-3) 1 % (0-3) Basophils (%) (Auto) 0 % (0-3) 0 % (0-3) Neutrophils # (Auto) 14.3 x10^3/uL (1.8-7.7) 11.7 x10^3/uL (1.8-7.7) Lymphocytes # (Auto) 3.6 x10^3/uL (1.0-4.8) 2.7 x10^3/uL (1.0-4.8) Monocytes # (Auto) 1.5 x10^3/uL (0.0-1.1) 1.1 x10^3/uL (0.0-1.1) Eosinophils # (Auto) 0.1 x10^3/uL (0.0-0.7) 0.1 x10^3/uL (0.0-0.7) Basophils # (Auto) 0.0 x10^3/uL (0.0-0.2) 0.1 x10^3/uL (0.0-0.2) Segmented Neutrophils % 74 % (35-66) Band Neutrophils % 1 % (0-9) Lymphocytes % 17 % (24-48) Monocytes % 8 % (0-10) Platelet Estimate Adequate (ADEQUATE) Prothrombin Time 15.4 SEC (11.7-14.0) Prothromb Time International Ratio 1.3 (0.8-1.1) Sodium Level 138 mmol/L (136-145) 141 mmol/L (136-145) Potassium Level 3.7 mmol/L (3.5-5.1) 3.5 mmol/L (3.5-5.1) Chloride Level 100 mmol/L (98-107) 103 mmol/L (98-107) Carbon Dioxide Level 26 mmol/L (21-32) 25 mmol/L (21-32) Anion Gap 12 (6-14) 13 (6-14) Blood Urea Nitrogen 53 mg/dL (7-20) 40 mg/dL (7-20) Creatinine 2.0 mg/dL (0.6-1.0) 1.4 mg/dL (0.6-1.0) Estimated GFR (Cockcroft-Gault) 27.5 41.4 BUN/Creatinine Ratio 27 (6-20) Glucose Level 103 mg/dL (70-99) 94 mg/dL (70-99) Lactic Acid Level 0.6 mmol/L (0.4-2.0) Calcium Level 9.8 mg/dL (8.5-10.1) 9.6 mg/dL (8.5-10.1) Total Bilirubin 0.3 mg/dL (0.2-1.0) Aspartate Amino Transf (AST/SGOT) 11 U/L (15-37) Alanine Aminotransferase (ALT/SGPT) 15 U/L (14-59) Alkaline Phosphatase 120 U/L (46-116) Troponin I Quantitative < 0.017 ng/mL (0.000-0.055) RS-Ydy-T-Type Natriuretic Peptide 232 pg/mL (0-124) Total Protein 7.5 g/dL (6.4-8.2) Albumin 2.6 g/dL (3.4-5.0) Albumin/Globulin Ratio 0.5 (1.0-1.7) Lipase 105 U/L (73-393) Urine Collection Type Unknown Urine Color Kristel Urine Clarity Clear Urine pH 5.0 Urine Specific [place] >=1.030 Urine Protein 30 mg/dL (NEG-TRACE) Urine Glucose (UA) Negative mg/dL (NEG) Urine Ketones (Stick) Negative mg/dL (NEG) Urine Blood Negative (NEG) Urine Nitrite Negative (NEG) Urine Bilirubin Small (NEG) Urine Urobilinogen Dipstick 1.0 mg/dL (0.2 mg/dL) Urine Leukocyte Esterase Negative (NEG) Urine RBC 1-2 /HPF (0-2) Urine WBC 11-20 /HPF (0-4) Urine Squamous Epithelial Cells Many /LPF Urine Amorphous Sediment Present /HPF Urine Bacteria Many /HPF (0-FEW) Urine Mucus Marked /LPF Urine Yeast Present /HPF Bedside Urine HCG, Qualitative Hcg negative (Negative) Assessment/Plan Assessment/Plan IMP NOHELIA WITH CR OF 2.0-NO CKD DEHYDRATION PLEURAL EFFUSION LEUCOCYTOSIS S/P GASTRIC SLEEVE IN AUG ? PLEURITIS PLAN HYDRATION HOLD HER HCTZ WILL FOLLOW DAMIÁN GUTIÉRREZ MD Jan 22, 2019 10:56
--- NOTE | 2019-01-22 11:14 | RAD ---
Lung scan 01/22/2019 CLINICAL HISTORY: Chest pain. Shortness of breath. History of recent gastric sleeve surgery. TECHNIQUE: After the intravenous administration of 30 mCi of xenon-133 gas, ventilation images of both lungs were obtained using the gamma camera. After intravenous ministration of 6.6 mCi technetium 99m MAA, perfusion images of both lungs were obtained using the gamma camera. FINDINGS: Comparison is made to portable chest radiograph dated 01/21/2019. This demonstrates borderline cardiomegaly. There is a small left pleural effusion. Slightly heterogeneous ventilation and perfusion to both lungs is seen, left greater than right. No unmatched perfusion defect is noted. These findings are consistent with a low probability study for pulmonary embolism. IMPRESSION: Low probability study. Electronically signed by: Gino Bermeo MD (01/22/2019 11:11 AM) [facility]
[2019-01-22] MEDS: PIPERACILLIN/TAZOBACTAM 3.375 GM in IV NORMAL SALINE 50ML 50 ML IV SCH ×2 (14:08→17:55)
[2019-01-22] MEDS ORDERED: PROCHLORPERAZINE 25 MG SUPP.RECT. PR PRN (18:30)
[2019-01-22] MEDS ORDERED: BISACODYL 10 MG SUPP.RECT. PR PRN (18:30)
[2019-01-22] MEDS ORDERED: 0.9 % SODIUM CHLORIDE 10 ML DISP.SYRIN. IV PRN (18:30)
--- NOTE | 2019-01-22 18:46 | NUR ---
Patient arrives via bed from 576 with DAINA High. Patient report received. Patient belongings with patient at this time. CHG bath given, Nozin completed, vital signs, weight, height documented. Patient report given to DAINA Jarrett. Transfer of care complete
[2019-01-22] MEDS ORDERED: IV NORMAL SALINE 1000ML BAG 1,000 ML IV SCH (19:00)
[2019-01-22] MEDS: FAMOTIDINE 20 MG/2 ML VIAL IVP SCH (20:31)
[2019-01-22] MEDS ORDERED: ENOXAPARIN 40 MG/0.4 ML SYRINGE. SQ SCH (21:00)
[2019-01-22] MEDS: HYDROmorphone 2 MG/ML VIAL IV PRN (22:31)
[2019-01-23] VITALS (20 sets, daily range): BP systolic 102–155; BP diastolic 57–88
[2019-01-23] MEDS: PIPERACILLIN/TAZOBACTAM 3.375 GM in IV NORMAL SALINE 50ML 50 ML IV SCH ×5 (00:12→23:30)
[2019-01-23] MEDS: PROCHLORPERAZINE 10 MG/2 ML VIAL. IV PRN (01:07)
[2019-01-23 05:47] LABS: BASO # 0.1 x10^3/uL (0.0-0.2); BASO % 1 % (0-3); EOS # 0.1 x10^3/uL (0.0-0.7); EOS % 1 % (0-3); HEMATOCRIT 36.4 % (36.0-47.0); LYMPH # 3.2 x10^3/uL (1.0-4.8); LYMPH % 20 % (24-48); MEAN CORPUSCULAR HEMOGLOBIN 26 pg (25-35); MEAN CORPUSCULAR HGB CONC 33 g/dL (31-37); MEAN CORPUSCULAR VOLUME 80 fL (79-100); MONO # 1.1 x10^3/uL (0.0-1.1); MONO % 7 % (0-9); NEUT # 11.4 x10^3/uL (1.8-7.7); NEUT % 72 % (31-73); PLATELET COUNT 391 x10^3/uL (140-400); RED BLOOD COUNT 4.53 x10^6/uL (3.50-5.40); RED CELL DISTRIBUTION WIDTH 14.6 % (11.5-14.5); WHITE BLOOD COUNT 15.8 x10^3/uL (4.0-11.0)
[2019-01-23] MEDS: HYDROmorphone 2 MG/ML VIAL IV PRN ×5 (05:50→16:47)
[2019-01-23] MEDS: IV NORMAL SALINE 1000ML BAG 1,000 ML IV SCH ×2 (05:54→16:47)
[2019-01-23 06:03] LABS: CALCIUM 9.6 mg/dL (8.5-10.1); CREATININE 1.2 mg/dL (0.6-1.0); GFR 49.5; POTASSIUM 3.9 mmol/L (3.5-5.1)
[2019-01-23] MEDS: FAMOTIDINE 20 MG/2 ML VIAL IVP SCH ×2 (09:06→21:45)
--- NOTE | 2019-01-23 09:28 | PDOC ---
PULMONARY PROGRESS NOTES Subjective no soa, some chest/abdominal discomfort Vitals Vital Signs Date Time Temp Pulse Resp B/P (MAP) Pulse Ox O2 Delivery O2 Flow Rate FiO2 01/23/19 08:28 20 94 Room Air 01/23/19 08:00 98.7 69 138/75 (96) 98.7 General: Alert, No acute distress Lungs: Clear Cardiovascular: S1 Abdomen: Soft, Other (mild tender) Neuro Exam: Alert Extremities: No Edema Skin: Warm Labs Laboratory Tests Test 01/21/19 19:15 01/21/19 19:40 01/21/19 19:46 01/22/19 04:15 White Blood Count 19.6 x10^3/uL (4.0-11.0) 15.7 x10^3/uL (4.0-11.0) Red Blood Count 4.62 x10^6/uL (3.50-5.40) 4.36 x10^6/uL (3.50-5.40) Hemoglobin 12.1 g/dL (12.0-15.5) 11.5 g/dL (12.0-15.5) Hematocrit 37.2 % (36.0-47.0) 35.1 % (36.0-47.0) Mean Corpuscular Volume 80 fL (79-100) 81 fL (79-100) Mean Corpuscular Hemoglobin 26 pg (25-35) 26 pg (25-35) Mean Corpuscular Hemoglobin Concent 33 g/dL (31-37) 33 g/dL (31-37) Red Cell Distribution Width 14.5 % (11.5-14.5) 14.5 % (11.5-14.5) Platelet Count 407 x10^3/uL (140-400) 342 x10^3/uL (140-400) Neutrophils (%) (Auto) 73 % (31-73) 75 % (31-73) Lymphocytes (%) (Auto) 19 % (24-48) 17 % (24-48) Monocytes (%) (Auto) 8 % (0-9) 7 % (0-9) Eosinophils (%) (Auto) 1 % (0-3) 1 % (0-3) Basophils (%) (Auto) 0 % (0-3) 0 % (0-3) Neutrophils # (Auto) 14.3 x10^3/uL (1.8-7.7) 11.7 x10^3/uL (1.8-7.7) Lymphocytes # (Auto) 3.6 x10^3/uL (1.0-4.8) 2.7 x10^3/uL (1.0-4.8) Monocytes # (Auto) 1.5 x10^3/uL (0.0-1.1) 1.1 x10^3/uL (0.0-1.1) Eosinophils # (Auto) 0.1 x10^3/uL (0.0-0.7) 0.1 x10^3/uL (0.0-0.7) Basophils # (Auto) 0.0 x10^3/uL (0.0-0.2) 0.1 x10^3/uL (0.0-0.2) Segmented Neutrophils % 74 % (35-66) Band Neutrophils % 1 % (0-9) Lymphocytes % 17 % (24-48) Monocytes % 8 % (0-10) Platelet Estimate Adequate (ADEQUATE) Prothrombin Time 15.4 SEC (11.7-14.0) Prothromb Time International Ratio 1.3 (0.8-1.1) Sodium Level 138 mmol/L (136-145) 141 mmol/L (136-145) Potassium Level 3.7 mmol/L (3.5-5.1) 3.5 mmol/L (3.5-5.1) Chloride Level 100 mmol/L (98-107) 103 mmol/L (98-107) Carbon Dioxide Level 26 mmol/L (21-32) 25 mmol/L (21-32) Anion Gap 12 (6-14) 13 (6-14) Blood Urea Nitrogen 53 mg/dL (7-20) 40 mg/dL (7-20) Creatinine 2.0 mg/dL (0.6-1.0) 1.4 mg/dL (0.6-1.0) Estimated GFR (Cockcroft-Gault) 27.5 41.4 BUN/Creatinine Ratio 27 (6-20) Glucose Level 103 mg/dL (70-99) 94 mg/dL (70-99) Lactic Acid Level 0.6 mmol/L (0.4-2.0) Calcium Level 9.8 mg/dL (8.5-10.1) 9.6 mg/dL (8.5-10.1) Total Bilirubin 0.3 mg/dL (0.2-1.0) Aspartate Amino Transf (AST/SGOT) 11 U/L (15-37) Alanine Aminotransferase (ALT/SGPT) 15 U/L (14-59) Alkaline Phosphatase 120 U/L (46-116) Troponin I Quantitative < 0.017 ng/mL (0.000-0.055) NX-Rdc-J-Type Natriuretic Peptide 232 pg/mL (0-124) Total Protein 7.5 g/dL (6.4-8.2) Albumin 2.6 g/dL (3.4-5.0) Albumin/Globulin Ratio 0.5 (1.0-1.7) Lipase 105 U/L (73-393) Urine Collection Type Unknown Urine Color Kristel Urine Clarity Clear Urine pH 5.0 Urine Specific [place] >=1.030 Urine Protein 30 mg/dL (NEG-TRACE) Urine Glucose (UA) Negative mg/dL (NEG) Urine Ketones (Stick) Negative mg/dL (NEG) Urine Blood Negative (NEG) Urine Nitrite Negative (NEG) Urine Bilirubin Small (NEG) Urine Urobilinogen Dipstick 1.0 mg/dL (0.2 mg/dL) Urine Leukocyte Esterase Negative (NEG) Urine RBC 1-2 /HPF (0-2) Urine WBC 11-20 /HPF (0-4) Urine Squamous Epithelial Cells Many /LPF Urine Amorphous Sediment Present /HPF Urine Bacteria Many /HPF (0-FEW) Urine Mucus Marked /LPF Urine Yeast Present /HPF Bedside Urine HCG, Qualitative Hcg negative (Negative) Test 01/23/19 05:25 White Blood Count 15.8 x10^3/uL (4.0-11.0) Red Blood Count 4.53 x10^6/uL (3.50-5.40) Hemoglobin 12.0 g/dL (12.0-15.5) Hematocrit 36.4 % (36.0-47.0) Mean Corpuscular Volume 80 fL (79-100) Mean Corpuscular Hemoglobin 26 pg (25-35) Mean Corpuscular Hemoglobin Concent 33 g/dL (31-37) Red Cell Distribution Width 14.6 % (11.5-14.5) Platelet Count 391 x10^3/uL (140-400) Neutrophils (%) (Auto) 72 % (31-73) Lymphocytes (%) (Auto) 20 % (24-48) Monocytes (%) (Auto) 7 % (0-9) Eosinophils (%) (Auto) 1 % (0-3) Basophils (%) (Auto) 1 % (0-3) Neutrophils # (Auto) 11.4 x10^3/uL (1.8-7.7) Lymphocytes # (Auto) 3.2 x10^3/uL (1.0-4.8) Monocytes # (Auto) 1.1 x10^3/uL (0.0-1.1) Eosinophils # (Auto) 0.1 x10^3/uL (0.0-0.7) Basophils # (Auto) 0.1 x10^3/uL (0.0-0.2) Sodium Level 145 mmol/L (136-145) Potassium Level 3.9 mmol/L (3.5-5.1) Chloride Level 107 mmol/L (98-107) Carbon Dioxide Level 27 mmol/L (21-32) Anion Gap 11 (6-14) Blood Urea Nitrogen 23 mg/dL (7-20) Creatinine 1.2 mg/dL (0.6-1.0) Estimated GFR (Cockcroft-Gault) 49.5 Glucose Level 99 mg/dL (70-99) Calcium Level 9.6 mg/dL (8.5-10.1) Laboratory Tests Test 01/23/19 05:25 White Blood Count 15.8 x10^3/uL (4.0-11.0) Red Blood Count 4.53 x10^6/uL (3.50-5.40) Hemoglobin 12.0 g/dL (12.0-15.5) Hematocrit 36.4 % (36.0-47.0) Mean Corpuscular Volume 80 fL (79-100) Mean Corpuscular Hemoglobin 26 pg (25-35) Mean Corpuscular Hemoglobin Concent 33 g/dL (31-37) Red Cell Distribution Width 14.6 % (11.5-14.5) Platelet Count 391 x10^3/uL (140-400) Neutrophils (%) (Auto) 72 % (31-73) Lymphocytes (%) (Auto) 20 % (24-48) Monocytes (%) (Auto) 7 % (0-9) Eosinophils (%) (Auto) 1 % (0-3) Basophils (%) (Auto) 1 % (0-3) Neutrophils # (Auto) 11.4 x10^3/uL (1.8-7.7) Lymphocytes # (Auto) 3.2 x10^3/uL (1.0-4.8) Monocytes # (Auto) 1.1 x10^3/uL (0.0-1.1) Eosinophils # (Auto) 0.1 x10^3/uL (0.0-0.7) Basophils # (Auto) 0.1 x10^3/uL (0.0-0.2) Sodium Level 145 mmol/L (136-145) Potassium Level 3.9 mmol/L (3.5-5.1) Chloride Level 107 mmol/L (98-107) Carbon Dioxide Level 27 mmol/L (21-32) Anion Gap 11 (6-14) Blood Urea Nitrogen 23 mg/dL (7-20) Creatinine 1.2 mg/dL (0.6-1.0) Estimated GFR (Cockcroft-Gault) 49.5 Glucose Level 99 mg/dL (70-99) Calcium Level 9.6 mg/dL (8.5-10.1) Medications Active Scripts Medications Dose Route/Sig Max Daily Dose Days Date Category Bactroban Cream (Mupirocin) 15 Gm Cream..g. 1 Monica TP TID 11/25/17 Rx Impression . 1. Small left basal pleural effusion related to the abdominal process involving the left lower chest. This is not of any clinical significance and does not need any intervention. 2. Recent gastric sleeve surgery and now comes in with abdominal pain and small perforation in the proximal stomach. General Surgery, Dr. Donaldson following 3. Chest discomfort upon taking deep breaths, related to the abdominal pain. V/Q scan low prob 4. Acute kidney injury, now improving. Plan . 1. From a pulmonary standpoint, she is on room air and stable. 2. No evidence of thromboembolic disease. 3. Follow Surgery recommendations. 4. Follow renal recommendations. 5. DVT prophylaxis . Discussed with RN Not much to add pulmonary banks.she may be transfer to in MARIA TERESA Castro MD Jan 23, 2019 09:28
--- NOTE | 2019-01-23 09:29 | PDOC ---
Renal-Progress Notes Subjective Notes Notes FEELING BETTER History of Present Illness Hx of present illness STABLE Vitals Vitals Vital Signs Date Time Temp Pulse Resp B/P (MAP) Pulse Ox O2 Delivery O2 Flow Rate FiO2 01/23/19 08:28 20 94 Room Air 01/23/19 08:00 98.7 69 138/75 (96) 98.7 Weight Weight [ ] I.O. Intake and Output Intake and Output 01/23/19 07:00 Intake Total 1365 ml Balance 1365 ml Intake Oral 0 ml IV Total 1365 ml # Voids 5 Labs Labs Laboratory Tests Test 01/23/19 05:25 White Blood Count 15.8 x10^3/uL (4.0-11.0) Red Blood Count 4.53 x10^6/uL (3.50-5.40) Hemoglobin 12.0 g/dL (12.0-15.5) Hematocrit 36.4 % (36.0-47.0) Mean Corpuscular Volume 80 fL (79-100) Mean Corpuscular Hemoglobin 26 pg (25-35) Mean Corpuscular Hemoglobin Concent 33 g/dL (31-37) Red Cell Distribution Width 14.6 % (11.5-14.5) Platelet Count 391 x10^3/uL (140-400) Neutrophils (%) (Auto) 72 % (31-73) Lymphocytes (%) (Auto) 20 % (24-48) Monocytes (%) (Auto) 7 % (0-9) Eosinophils (%) (Auto) 1 % (0-3) Basophils (%) (Auto) 1 % (0-3) Neutrophils # (Auto) 11.4 x10^3/uL (1.8-7.7) Lymphocytes # (Auto) 3.2 x10^3/uL (1.0-4.8) Monocytes # (Auto) 1.1 x10^3/uL (0.0-1.1) Eosinophils # (Auto) 0.1 x10^3/uL (0.0-0.7) Basophils # (Auto) 0.1 x10^3/uL (0.0-0.2) Sodium Level 145 mmol/L (136-145) Potassium Level 3.9 mmol/L (3.5-5.1) Chloride Level 107 mmol/L (98-107) Carbon Dioxide Level 27 mmol/L (21-32) Anion Gap 11 (6-14) Blood Urea Nitrogen 23 mg/dL (7-20) Creatinine 1.2 mg/dL (0.6-1.0) Estimated GFR (Cockcroft-Gault) 49.5 Glucose Level 99 mg/dL (70-99) Calcium Level 9.6 mg/dL (8.5-10.1) Micro Micro Microbiology 01/21/19 Blood Culture - Preliminary, Resulted NO GROWTH AFTER 1 DAY Review of Systems Constitutional: yes: alert, oriented Ears/Nose/Throat: Yes: no symptom reported Eyes: Yes: no symptom reported Pulmonary: Yes no symptom reported Cardiovascular: Yes no symptom reported Gastrointestional: Yes: no symptom reported Genitourinary: Yes: no symptom reported Musculoskeletal: Yes: no symptom reported Skin: Yes no symptom reported Psychiatric/Neurological: Yes: no symptom reported Endocrine: Yes: no symptom reported Physical Exam General Appearance: no apparent distress Skin: warm Respiratory: bilateral CTA Heart: S1S2, RRR Abdomen: soft, bowel sounds present Genitourinary: bladder flat Extremities: pulses present Neurology: alert Assessment Assessment MP NOHELIA RESOLVING WITH CR DOWN TO 1.2 DEHYDRATION PLEURAL EFFUSION LEUCOCYTOSIS S/P GASTRIC SLEEVE IN NOV ? PLEURITIS PLAN HYDRATION HOLD HER HCTZ WILL FOLLOW DAMIÁN GUTIÉRREZ MD Jan 23, 2019 09:29
--- NOTE | 2019-01-23 11:09 | EKG ---
[facility] [address] [place] [address] Test Date: 2019-01-21 Test Time: 19:04:07 Pat Name: ELYSE AMBRIZ Department: Room: Gender: F [employer]: : [id number] Requested By: KATELYN MARTINS Order Number: [id number] Reading MD: Measurements Intervals [place] Rate: 69 P: 47 VA: 154 QRS: 24 QRSD: 94 T: 17 QT: 382 QTc: 411 Interpretive Statements SINUS RHYTHM NO SPECIFIC ECG ABNORMALITIES RI6.01 No previous ECG available for comparison
--- NOTE | 2019-01-23 12:10 | PDOC ---
SURGICAL PROGRESS NOTE Subjective good pain control only complaint is no ice chips Vital Signs Vital Signs Date Time Temp Pulse Resp B/P (MAP) Pulse Ox O2 Delivery O2 Flow Rate FiO2 01/23/19 11:39 30 96 Room Air 01/23/19 10:00 51 136/66 (89) 01/23/19 08:00 98.7 98.7 I&O Intake and Output 01/23/19 07:00 Intake Total 1365 ml Balance 1365 ml Intake Oral 0 ml IV Total 1365 ml # Voids 5 PATIENT HAS A GALVAN: No General: Alert, Oriented X3, No acute distress Lungs: Normal air movement Abdomen: Soft Labs Laboratory Tests Test 01/21/19 19:15 01/21/19 19:40 01/21/19 19:46 01/22/19 04:15 White Blood Count 19.6 x10^3/uL (4.0-11.0) 15.7 x10^3/uL (4.0-11.0) Red Blood Count 4.62 x10^6/uL (3.50-5.40) 4.36 x10^6/uL (3.50-5.40) Hemoglobin 12.1 g/dL (12.0-15.5) 11.5 g/dL (12.0-15.5) Hematocrit 37.2 % (36.0-47.0) 35.1 % (36.0-47.0) Mean Corpuscular Volume 80 fL (79-100) 81 fL (79-100) Mean Corpuscular Hemoglobin 26 pg (25-35) 26 pg (25-35) Mean Corpuscular Hemoglobin Concent 33 g/dL (31-37) 33 g/dL (31-37) Red Cell Distribution Width 14.5 % (11.5-14.5) 14.5 % (11.5-14.5) Platelet Count 407 x10^3/uL (140-400) 342 x10^3/uL (140-400) Neutrophils (%) (Auto) 73 % (31-73) 75 % (31-73) Lymphocytes (%) (Auto) 19 % (24-48) 17 % (24-48) Monocytes (%) (Auto) 8 % (0-9) 7 % (0-9) Eosinophils (%) (Auto) 1 % (0-3) 1 % (0-3) Basophils (%) (Auto) 0 % (0-3) 0 % (0-3) Neutrophils # (Auto) 14.3 x10^3/uL (1.8-7.7) 11.7 x10^3/uL (1.8-7.7) Lymphocytes # (Auto) 3.6 x10^3/uL (1.0-4.8) 2.7 x10^3/uL (1.0-4.8) Monocytes # (Auto) 1.5 x10^3/uL (0.0-1.1) 1.1 x10^3/uL (0.0-1.1) Eosinophils # (Auto) 0.1 x10^3/uL (0.0-0.7) 0.1 x10^3/uL (0.0-0.7) Basophils # (Auto) 0.0 x10^3/uL (0.0-0.2) 0.1 x10^3/uL (0.0-0.2) Segmented Neutrophils % 74 % (35-66) Band Neutrophils % 1 % (0-9) Lymphocytes % 17 % (24-48) Monocytes % 8 % (0-10) Platelet Estimate Adequate (ADEQUATE) Prothrombin Time 15.4 SEC (11.7-14.0) Prothromb Time International Ratio 1.3 (0.8-1.1) Sodium Level 138 mmol/L (136-145) 141 mmol/L (136-145) Potassium Level 3.7 mmol/L (3.5-5.1) 3.5 mmol/L (3.5-5.1) Chloride Level 100 mmol/L (98-107) 103 mmol/L (98-107) Carbon Dioxide Level 26 mmol/L (21-32) 25 mmol/L (21-32) Anion Gap 12 (6-14) 13 (6-14) Blood Urea Nitrogen 53 mg/dL (7-20) 40 mg/dL (7-20) Creatinine 2.0 mg/dL (0.6-1.0) 1.4 mg/dL (0.6-1.0) Estimated GFR (Cockcroft-Gault) 27.5 41.4 BUN/Creatinine Ratio 27 (6-20) Glucose Level 103 mg/dL (70-99) 94 mg/dL (70-99) Lactic Acid Level 0.6 mmol/L (0.4-2.0) Calcium Level 9.8 mg/dL (8.5-10.1) 9.6 mg/dL (8.5-10.1) Total Bilirubin 0.3 mg/dL (0.2-1.0) Aspartate Amino Transf (AST/SGOT) 11 U/L (15-37) Alanine Aminotransferase (ALT/SGPT) 15 U/L (14-59) Alkaline Phosphatase 120 U/L (46-116) Troponin I Quantitative < 0.017 ng/mL (0.000-0.055) [id number] Natriuretic Peptide 232 pg/mL (0-124) Total Protein 7.5 g/dL (6.4-8.2) Albumin 2.6 g/dL (3.4-5.0) Albumin/Globulin Ratio 0.5 (1.0-1.7) Lipase 105 U/L (73-393) Urine Collection Type Unknown Urine Color Kristel Urine Clarity Clear Urine pH 5.0 Urine Specific [place] >=1.030 Urine Protein 30 mg/dL (NEG-TRACE) Urine Glucose (UA) Negative mg/dL (NEG) Urine Ketones (Stick) Negative mg/dL (NEG) Urine Blood Negative (NEG) Urine Nitrite Negative (NEG) Urine Bilirubin Small (NEG) Urine Urobilinogen Dipstick 1.0 mg/dL (0.2 mg/dL) Urine Leukocyte Esterase Negative (NEG) Urine RBC 1-2 /HPF (0-2) Urine WBC 11-20 /HPF (0-4) Urine Squamous Epithelial Cells Many /LPF Urine Amorphous Sediment Present /HPF Urine Bacteria Many /HPF (0-FEW) Urine Mucus Marked /LPF Urine Yeast Present /HPF Bedside Urine HCG, Qualitative Hcg negative (Negative) Test 01/23/19 05:25 White Blood Count 15.8 x10^3/uL (4.0-11.0) Red Blood Count 4.53 x10^6/uL (3.50-5.40) Hemoglobin 12.0 g/dL (12.0-15.5) Hematocrit 36.4 % (36.0-47.0) Mean Corpuscular Volume 80 fL (79-100) Mean Corpuscular Hemoglobin 26 pg (25-35) Mean Corpuscular Hemoglobin Concent 33 g/dL (31-37) Red Cell Distribution Width 14.6 % (11.5-14.5) Platelet Count 391 x10^3/uL (140-400) Neutrophils (%) (Auto) 72 % (31-73) Lymphocytes (%) (Auto) 20 % (24-48) Monocytes (%) (Auto) 7 % (0-9) Eosinophils (%) (Auto) 1 % (0-3) Basophils (%) (Auto) 1 % (0-3) Neutrophils # (Auto) 11.4 x10^3/uL (1.8-7.7) Lymphocytes # (Auto) 3.2 x10^3/uL (1.0-4.8) Monocytes # (Auto) 1.1 x10^3/uL (0.0-1.1) Eosinophils # (Auto) 0.1 x10^3/uL (0.0-0.7) Basophils # (Auto) 0.1 x10^3/uL (0.0-0.2) Sodium Level 145 mmol/L (136-145) Potassium Level 3.9 mmol/L (3.5-5.1) Chloride Level 107 mmol/L (98-107) Carbon Dioxide Level 27 mmol/L (21-32) Anion Gap 11 (6-14) Blood Urea Nitrogen 23 mg/dL (7-20) Creatinine 1.2 mg/dL (0.6-1.0) Estimated GFR (Cockcroft-Gault) 49.5 Glucose Level 99 mg/dL (70-99) Calcium Level 9.6 mg/dL (8.5-10.1) Laboratory Tests Test 01/23/19 05:25 White Blood Count 15.8 x10^3/uL (4.0-11.0) Red Blood Count 4.53 x10^6/uL (3.50-5.40) Hemoglobin 12.0 g/dL (12.0-15.5) Hematocrit 36.4 % (36.0-47.0) Mean Corpuscular Volume 80 fL (79-100) Mean Corpuscular Hemoglobin 26 pg (25-35) Mean Corpuscular Hemoglobin Concent 33 g/dL (31-37) Red Cell Distribution Width 14.6 % (11.5-14.5) Platelet Count 391 x10^3/uL (140-400) Neutrophils (%) (Auto) 72 % (31-73) Lymphocytes (%) (Auto) 20 % (24-48) Monocytes (%) (Auto) 7 % (0-9) Eosinophils (%) (Auto) 1 % (0-3) Basophils (%) (Auto) 1 % (0-3) Neutrophils # (Auto) 11.4 x10^3/uL (1.8-7.7) Lymphocytes # (Auto) 3.2 x10^3/uL (1.0-4.8) Monocytes # (Auto) 1.1 x10^3/uL (0.0-1.1) Eosinophils # (Auto) 0.1 x10^3/uL (0.0-0.7) Basophils # (Auto) 0.1 x10^3/uL (0.0-0.2) Sodium Level 145 mmol/L (136-145) Potassium Level 3.9 mmol/L (3.5-5.1) Chloride Level 107 mmol/L (98-107) Carbon Dioxide Level 27 mmol/L (21-32) Anion Gap 11 (6-14) Blood Urea Nitrogen 23 mg/dL (7-20) Creatinine 1.2 mg/dL (0.6-1.0) Estimated GFR (Cockcroft-Gault) 49.5 Glucose Level 99 mg/dL (70-99) Calcium Level 9.6 mg/dL (8.5-10.1) Problem List Problems Medical Problems: (1) Pleural effusion Status: Acute Assessment/Plan perforated viscous s/p gastric sleeve continue supportive care Procalamine Tx to center with bariatric coverage GAURANG MENDOZA MD Jan 23, 2019 12:10
[2019-01-23] MEDS: AMINO AC 3%/ELECTROLYTE/GLYCER 1,000 ML IV SCH ×2 (12:54→23:29)
--- NOTE | 2019-01-23 14:37 | PDOC ---
PROGRESS NOTES Chief Complaint Chief Complaint acute abd pain Pleural effusion Recent gastric sleeve surgery with abdominal pain and small perforation in the proximal stomach. General Surgery, Dr. Donaldson was consulted in the ER and he will follow. Air-fluid collection above the proximal stomach NOHELIA, vasomotor, morbid obesity, BMI 44 History of Present Illness History of Present Illness plan per RN is to transfer to [facility] tomorrrow, bariatric surg team pain OK cont PPN Vitals Vitals Vital Signs Date Time Temp Pulse Resp B/P (MAP) Pulse Ox O2 Delivery O2 Flow Rate FiO2 01/23/19 12:00 98.5 56 17 155/76 (102) 97 Room Air 98.5 Physical Exam General: Alert, Oriented X3, No acute distress Heart: Normal S1 Lungs: Clear Abdomen: Soft Extremities: No cyanosis Skin: No breakdown Labs LABS Laboratory Tests Test 01/23/19 05:25 White Blood Count 15.8 x10^3/uL (4.0-11.0) Red Blood Count 4.53 x10^6/uL (3.50-5.40) Hemoglobin 12.0 g/dL (12.0-15.5) Hematocrit 36.4 % (36.0-47.0) Mean Corpuscular Volume 80 fL (79-100) Mean Corpuscular Hemoglobin 26 pg (25-35) Mean Corpuscular Hemoglobin Concent 33 g/dL (31-37) Red Cell Distribution Width 14.6 % (11.5-14.5) Platelet Count 391 x10^3/uL (140-400) Neutrophils (%) (Auto) 72 % (31-73) Lymphocytes (%) (Auto) 20 % (24-48) Monocytes (%) (Auto) 7 % (0-9) Eosinophils (%) (Auto) 1 % (0-3) Basophils (%) (Auto) 1 % (0-3) Neutrophils # (Auto) 11.4 x10^3/uL (1.8-7.7) Lymphocytes # (Auto) 3.2 x10^3/uL (1.0-4.8) Monocytes # (Auto) 1.1 x10^3/uL (0.0-1.1) Eosinophils # (Auto) 0.1 x10^3/uL (0.0-0.7) Basophils # (Auto) 0.1 x10^3/uL (0.0-0.2) Sodium Level 145 mmol/L (136-145) Potassium Level 3.9 mmol/L (3.5-5.1) Chloride Level 107 mmol/L (98-107) Carbon Dioxide Level 27 mmol/L (21-32) Anion Gap 11 (6-14) Blood Urea Nitrogen 23 mg/dL (7-20) Creatinine 1.2 mg/dL (0.6-1.0) Estimated GFR (Cockcroft-Gault) 49.5 Glucose Level 99 mg/dL (70-99) Calcium Level 9.6 mg/dL (8.5-10.1) Assessment and Plan Assessmemt and Plan Problems Medical Problems: (1) Pleural effusion Status: Acute Comment Review of Relevant I have reviewed the following items seferino (where applicable) has been applied. Labs Laboratory Tests Test 01/21/19 19:15 01/21/19 19:40 01/21/19 19:46 01/22/19 04:15 White Blood Count 19.6 x10^3/uL (4.0-11.0) 15.7 x10^3/uL (4.0-11.0) Red Blood Count 4.62 x10^6/uL (3.50-5.40) 4.36 x10^6/uL (3.50-5.40) Hemoglobin 12.1 g/dL (12.0-15.5) 11.5 g/dL (12.0-15.5) Hematocrit 37.2 % (36.0-47.0) 35.1 % (36.0-47.0) Mean Corpuscular Volume 80 fL (79-100) 81 fL (79-100) Mean Corpuscular Hemoglobin 26 pg (25-35) 26 pg (25-35) Mean Corpuscular Hemoglobin Concent 33 g/dL (31-37) 33 g/dL (31-37) Red Cell Distribution Width 14.5 % (11.5-14.5) 14.5 % (11.5-14.5) Platelet Count 407 x10^3/uL (140-400) 342 x10^3/uL (140-400) Neutrophils (%) (Auto) 73 % (31-73) 75 % (31-73) Lymphocytes (%) (Auto) 19 % (24-48) 17 % (24-48) Monocytes (%) (Auto) 8 % (0-9) 7 % (0-9) Eosinophils (%) (Auto) 1 % (0-3) 1 % (0-3) Basophils (%) (Auto) 0 % (0-3) 0 % (0-3) Neutrophils # (Auto) 14.3 x10^3/uL (1.8-7.7) 11.7 x10^3/uL (1.8-7.7) Lymphocytes # (Auto) 3.6 x10^3/uL (1.0-4.8) 2.7 x10^3/uL (1.0-4.8) Monocytes # (Auto) 1.5 x10^3/uL (0.0-1.1) 1.1 x10^3/uL (0.0-1.1) Eosinophils # (Auto) 0.1 x10^3/uL (0.0-0.7) 0.1 x10^3/uL (0.0-0.7) Basophils # (Auto) 0.0 x10^3/uL (0.0-0.2) 0.1 x10^3/uL (0.0-0.2) Segmented Neutrophils % 74 % (35-66) Band Neutrophils % 1 % (0-9) Lymphocytes % 17 % (24-48) Monocytes % 8 % (0-10) Platelet Estimate Adequate (ADEQUATE) Prothrombin Time 15.4 SEC (11.7-14.0) Prothromb Time International Ratio 1.3 (0.8-1.1) Sodium Level 138 mmol/L (136-145) 141 mmol/L (136-145) Potassium Level 3.7 mmol/L (3.5-5.1) 3.5 mmol/L (3.5-5.1) Chloride Level 100 mmol/L (98-107) 103 mmol/L (98-107) Carbon Dioxide Level 26 mmol/L (21-32) 25 mmol/L (21-32) Anion Gap 12 (6-14) 13 (6-14) Blood Urea Nitrogen 53 mg/dL (7-20) 40 mg/dL (7-20) Creatinine 2.0 mg/dL (0.6-1.0) 1.4 mg/dL (0.6-1.0) Estimated GFR (Cockcroft-Gault) 27.5 41.4 BUN/Creatinine Ratio 27 (6-20) Glucose Level 103 mg/dL (70-99) 94 mg/dL (70-99) Lactic Acid Level 0.6 mmol/L (0.4-2.0) Calcium Level 9.8 mg/dL (8.5-10.1) 9.6 mg/dL (8.5-10.1) Total Bilirubin 0.3 mg/dL (0.2-1.0) Aspartate Amino Transf (AST/SGOT) 11 U/L (15-37) Alanine Aminotransferase (ALT/SGPT) 15 U/L (14-59) Alkaline Phosphatase 120 U/L (46-116) Troponin I Quantitative < 0.017 ng/mL (0.000-0.055) EF-Qae-Q-Type Natriuretic Peptide 232 pg/mL (0-124) Total Protein 7.5 g/dL (6.4-8.2) Albumin 2.6 g/dL (3.4-5.0) Albumin/Globulin Ratio 0.5 (1.0-1.7) Lipase 105 U/L (73-393) Urine Collection Type Unknown Urine Color Kristel Urine Clarity Clear Urine pH 5.0 Urine Specific [place] >=1.030 Urine Protein 30 mg/dL (NEG-TRACE) Urine Glucose (UA) Negative mg/dL (NEG) Urine Ketones (Stick) Negative mg/dL (NEG) Urine Blood Negative (NEG) Urine Nitrite Negative (NEG) Urine Bilirubin Small (NEG) Urine Urobilinogen Dipstick 1.0 mg/dL (0.2 mg/dL) Urine Leukocyte Esterase Negative (NEG) Urine RBC 1-2 /HPF (0-2) Urine WBC 11-20 /HPF (0-4) Urine Squamous Epithelial Cells Many /LPF Urine Amorphous Sediment Present /HPF Urine Bacteria Many /HPF (0-FEW) Urine Mucus Marked /LPF Urine Yeast Present /HPF Bedside Urine HCG, Qualitative Hcg negative (Negative) Test 01/23/19 05:25 White Blood Count 15.8 x10^3/uL (4.0-11.0) Red Blood Count 4.53 x10^6/uL (3.50-5.40) Hemoglobin 12.0 g/dL (12.0-15.5) Hematocrit 36.4 % (36.0-47.0) Mean Corpuscular Volume 80 fL (79-100) Mean Corpuscular Hemoglobin 26 pg (25-35) Mean Corpuscular Hemoglobin Concent 33 g/dL (31-37) Red Cell Distribution Width 14.6 % (11.5-14.5) Platelet Count 391 x10^3/uL (140-400) Neutrophils (%) (Auto) 72 % (31-73) Lymphocytes (%) (Auto) 20 % (24-48) Monocytes (%) (Auto) 7 % (0-9) Eosinophils (%) (Auto) 1 % (0-3) Basophils (%) (Auto) 1 % (0-3) Neutrophils # (Auto) 11.4 x10^3/uL (1.8-7.7) Lymphocytes # (Auto) 3.2 x10^3/uL (1.0-4.8) Monocytes # (Auto) 1.1 x10^3/uL (0.0-1.1) Eosinophils # (Auto) 0.1 x10^3/uL (0.0-0.7) Basophils # (Auto) 0.1 x10^3/uL (0.0-0.2) Sodium Level 145 mmol/L (136-145) Potassium Level 3.9 mmol/L (3.5-5.1) Chloride Level 107 mmol/L (98-107) Carbon Dioxide Level 27 mmol/L (21-32) Anion Gap 11 (6-14) Blood Urea Nitrogen 23 mg/dL (7-20) Creatinine 1.2 mg/dL (0.6-1.0) Estimated GFR (Cockcroft-Gault) 49.5 Glucose Level 99 mg/dL (70-99) Calcium Level 9.6 mg/dL (8.5-10.1) Laboratory Tests Test 01/23/19 05:25 White Blood Count 15.8 x10^3/uL (4.0-11.0) Red Blood Count 4.53 x10^6/uL (3.50-5.40) Hemoglobin 12.0 g/dL (12.0-15.5) Hematocrit 36.4 % (36.0-47.0) Mean Corpuscular Volume 80 fL (79-100) Mean Corpuscular Hemoglobin 26 pg (25-35) Mean Corpuscular Hemoglobin Concent 33 g/dL (31-37) Red Cell Distribution Width 14.6 % (11.5-14.5) Platelet Count 391 x10^3/uL (140-400) Neutrophils (%) (Auto) 72 % (31-73) Lymphocytes (%) (Auto) 20 % (24-48) Monocytes (%) (Auto) 7 % (0-9) Eosinophils (%) (Auto) 1 % (0-3) Basophils (%) (Auto) 1 % (0-3) Neutrophils # (Auto) 11.4 x10^3/uL (1.8-7.7) Lymphocytes # (Auto) 3.2 x10^3/uL (1.0-4.8) Monocytes # (Auto) 1.1 x10^3/uL (0.0-1.1) Eosinophils # (Auto) 0.1 x10^3/uL (0.0-0.7) Basophils # (Auto) 0.1 x10^3/uL (0.0-0.2) Sodium Level 145 mmol/L (136-145) Potassium Level 3.9 mmol/L (3.5-5.1) Chloride Level 107 mmol/L (98-107) Carbon Dioxide Level 27 mmol/L (21-32) Anion Gap 11 (6-14) Blood Urea Nitrogen 23 mg/dL (7-20) Creatinine 1.2 mg/dL (0.6-1.0) Estimated GFR (Cockcroft-Gault) 49.5 Glucose Level 99 mg/dL (70-99) Calcium Level 9.6 mg/dL (8.5-10.1) Microbiology 01/21/19 Blood Culture - Preliminary, Resulted NO GROWTH AFTER 1 DAY Medications Current Medications Sodium Chloride 1,000 ml @ 1,000 mls/hr 1X ONCE IV Last administered on 01/21/19at 19:43; Start 01/21/19 at 19:30; Stop 01/21/19 at 20:29; Status DC Sodium Chloride 500 ml @ 500 mls/hr 1X ONCE IV Last administered on 01/21/19at 19:43; Start 01/21/19 at 19:30; Stop 01/21/19 at 20:29; Status DC Fentanyl Citrate (Fentanyl 2ml Vial) 50 mcg 1X ONCE IV Last administered on 01/21/19at 19:42; Start 01/21/19 at 19:30; Stop 01/21/19 at 19:37; Status DC Fentanyl Citrate (Fentanyl 2ml Vial) 100 mcg STK-MED ONCE .ROUTE ; Start 01/21/19 at 19:36; Stop 01/21/19 at 19:37; Status DC Ceftriaxone Sodium (Rocephin) 1 gm 1X ONCE IVP Last administered on 01/21/19at 21:47; Start 01/21/19 at 20:00; Stop 01/21/19 at 20:07; Status DC Fentanyl Citrate (Fentanyl 2ml Vial) 50 mcg PRN Q1HR PRN IV PAIN Last administered on 01/22/19at 19:20; Start 01/21/19 at 21:00; Stop 01/22/19 at 20:59; Status DC Sodium Chloride 1,000 ml @ 100 mls/hr Q10H IV Last administered on 01/22/19at 08:54; Start 01/21/19 at 20:51; Stop 01/22/19 at 20:50; Status DC Azithromycin 250 ml @ 250 mls/hr 1X ONCE IV Last administered on 01/21/19at 21:49; Start 01/21/19 at 21:00; Stop 01/21/19 at 21:59; Status DC Iohexol (Omnipaque 240 Mg/ml) 30 ml 1X ONCE PO Last administered on 01/21/19at 21:49; Start 01/21/19 at 21:45; Stop 01/21/19 at 21:46; Status DC Info (CONTRAST GIVEN -- Rx MONITORING) 1 each PRN DAILY PRN MC SEE COMMENTS; Start 01/21/19 at 21:45; Stop 01/23/19 at 21:44 Metoclopramide HCl (Reglan Vial) 10 mg 1X ONCE IVP ; Start 01/21/19 at 22:15; Stop 01/21/19 at 22:16; Status DC Piperacillin Sod/ Tazobactam Sod 3.375 gm/Sodium Chloride 50 ml @ 100 mls/hr 1X ONCE IV Last administered on 01/21/19at 23:13; Start 01/21/19 at 22:30; Stop 01/21/19 at 22:59; Status DC Influenza Virus Vaccine Quadrival (Afluria Quad 2019-20 (3yr Up) Syringe) 0.5 ml ONCE ONCE VAX IM Last administered on 01/22/19at 11:10; Start 01/22/19 at 09:00; Stop 01/22/19 at 09:01; Status DC Info (FLU VACCINE SCREEN per RX) 1 each PRN 1X PRN MC SEE COMMENTS; Start 01/22/19 at 01:15; Status Cancel Lorazepam (Ativan Inj) 1 mg PRN Q4HRS PRN IVP ANXIETY / AGITATION Last administered on 01/22/19at 05:22; Start 01/22/19 at 05:15 Promethazine HCl (Phenergan) 25 mg PRN Q6HRS PRN PO NAUSEA/VOMITING; Start 01/22/19 at 05:15 Piperacillin Sod/ Tazobactam Sod 3.375 gm/Sodium Chloride 50 ml @ 100 mls/hr Q6HRS IV Last administered on 01/23/19at 11:33; Start 01/22/19 at 13:00 Prochlorperazine Edisylate (Compazine) 5 mg PRN Q6HRS PRN IV NAUSEA/VOMITING Last administered on 01/23/19at 01:07; Start 01/22/19 at 18:30 Prochlorperazine (Compazine) 25 mg PRN Q12HR PRN [place] NAUSEA/VOMITING; Start 01/22/19 at 18:30 Famotidine (Pepcid Vial) 20 mg BID IVP Last administered on 01/23/19at 09:06; Start 01/22/19 at 21:00 Enoxaparin Sodium (Lovenox 40mg Syringe) 40 mg Q12HR SQ ; Start 01/22/19 at 21:00; Status UNV Sodium Chloride (Normal Saline Flush) 3 ml QSHIFT PRN IV AFTER MEDS AND BLOOD DRAWS; Start 01/22/19 at 18:30 Sodium Chloride 1,000 ml @ 1,000 mls/hr Q1H IV Last administered on 01/22/19at 19:20; Start 01/22/19 at 19:00; Stop 01/22/19 at 19:59; Status DC Sodium Chloride 1,000 ml @ 100 mls/hr Q10H IV Last administered on 01/23/19at 05:54; Start 01/22/19 at 20:00 Hydromorphone HCl (Dilaudid) 0.4 mg PRN Q1HR PRN IV PAIN Last administered on 01/23/19at 11:39; Start 01/22/19 at 18:30 Bisacodyl (Dulcolax Supp) 10 mg PRN DAILY PRN [place] CONSTIPATION; Start 01/22/19 at 18:30 Amino Acids/ Glycerin/ Electrolytes 1,000 ml @ 80 mls/hr [id number] IV Last administered on 01/23/19at 12:54; Start 01/23/19 at 12:00 Active Scripts Active Bactroban Cream (Mupirocin) 15 Gm Cream..g. 1 Monica TP TID Vitals/I & O Vital Sign - Last 24 Hours 01/22/19 01/22/19 01/22/19 01/22/19 14:44 15:00 16:46 17:23 Temp 98.1 98.1 Pulse 70 Resp 18 B/P (MAP) 128/72 (90) Pulse Ox 92 O2 Delivery Room Air Room Air Room Air Room Air 01/22/19 01/22/19 01/22/19 01/22/19 18:46 19:00 19:15 19:20 Temp 99.0 98.9 99.0 98.9 Pulse 68 62 70 Resp 24 29 15 B/P (MAP) 134/64 (87) 114/48 (70) 140/75 (96) Pulse Ox 96 94 97 96 O2 Delivery Room Air Room Air Room Air Room Air 01/22/19 01/22/19 01/22/19 01/22/19 19:50 20:00 20:00 21:00 Pulse 65 73 Resp 18 26 16 B/P (MAP) 123/58 (79) 119/68 (85) Pulse Ox 96 92 93 O2 Delivery Room Air Room Air Room Air Room Air 01/22/19 01/22/19 01/22/19 01/22/19 22:00 22:31 23:00 23:01 Pulse 65 62 Resp 32 33 17 B/P (MAP) 132/62 (85) 119/55 (76) Pulse Ox 92 92 92 92 O2 Delivery Room Air Room Air Room Air Room Air 01/23/19 01/23/19 01/23/19 01/23/19 00:00 00:00 01:00 02:00 Temp 98.7 98.7 Pulse 55 61 50 Resp 26 27 23 B/P (MAP) 114/57 (76) 108/69 (82) 118/61 (80) Pulse Ox 92 95 96 O2 Delivery Room Air Room Air Room Air Room Air 01/23/19 01/23/19 01/23/19 01/23/19 03:00 04:00 04:00 05:50 Temp 98.9 98.9 Pulse 55 54 Resp 27 23 15 B/P (MAP) 133/66 (88) 123/62 (82) Pulse Ox 92 93 93 O2 Delivery Room Air Room Air Room Air Room Air 01/23/19 01/23/19 01/23/19 01/23/19 06:20 07:00 07:58 08:00 Pulse 68 Resp 18 24 24 B/P (MAP) 130/79 (96) Pulse Ox 93 94 97 O2 Delivery Room Air Room Air Room Air Room Air 01/23/19 01/23/19 01/23/19 01/23/19 08:00 08:28 09:00 10:00 Temp 98.7 98.7 Pulse 69 56 51 Resp 26 20 28 24 B/P (MAP) 138/75 (96) 116/66 (83) 136/66 (89) Pulse Ox 97 94 96 96 O2 Delivery Room Air Room Air Room Air Room Air 01/23/19 01/23/19 01/23/19 11:00 11:39 12:00 Temp 98.5 98.5 Pulse 67 56 Resp 20 30 17 B/P (MAP) 149/74 (99) 155/76 (102) Pulse Ox 96 96 97 O2 Delivery Room Air Room Air Room Air Intake and Output 01/22/19 01/22/19 01/23/19 15:00 23:00 07:00 Intake Total 0 ml 50 ml 1315 ml Balance 0 ml 50 ml 1315 ml AARON CARRERA MD Jan 23, 2019 14:37
[2019-01-23] MEDS: fentaNYL PF VIAL 100 MCG/2 ML VIAL IVP PRN ×2 (18:51→20:09)
[2019-01-24] VITALS (9 sets, daily range): BP systolic 104–161; BP diastolic 59–82
[2019-01-24] MEDS: fentaNYL PF VIAL 100 MCG/2 ML VIAL IVP PRN ×4 (00:50→10:05)
[2019-01-24] MEDS: IV NORMAL SALINE 1000ML BAG 1,000 ML IV SCH (02:00)
[2019-01-24 05:22] LABS: CALCIUM 9.5 mg/dL (8.5-10.1); CREATININE 1.1 mg/dL (0.6-1.0); GFR 54.7; POTASSIUM 3.7 mmol/L (3.5-5.1)
[2019-01-24] MEDS: PIPERACILLIN/TAZOBACTAM 3.375 GM in IV NORMAL SALINE 50ML 50 ML IV SCH (05:53)
[2019-01-24] MEDS: PROCHLORPERAZINE 10 MG/2 ML VIAL. IV PRN (05:53)
[2019-01-24] MEDS ORDERED: LEVO75TA PO (08:02)
--- NOTE | 2019-01-24 08:59 | SNU/HH DC ---
DISCHARGE ORDERS DISCHARGE INFORMATION: DISCHARGE DATE: Jan 24, 2019 FINAL DIAGNOSIS Problems Medical Problems: (1) Pleural effusion Status: Acute CONDITION ON DISCHARGE: Stable CODE STATUS: Code Status: Full POST DISCHARGE ORDERS: ACTIVITY ORDERS: No restrictions DIET AFTER DISCHARGE: NPO FOLLOW-UP: PHYSICIAN FOLLOW-UP: to acute care DISCHARGE MEDICATIONS: Home Meds Active Scripts Mupirocin Calcium (BACTROBAN CREAM) 15 Gm Cream..g., 1 GIANCARLO TP TID, #30 GM Prov:DENAE DANIEL APRN 11/25/17 Reported Medications Levothyroxine Sodium (SYNTHROID) 75 Mcg Tablet, 1 TAB PO DAILY for Hypothyroid, #30 TAB 5 Refills 01/24/19 AARON CARRERA MD Jan 24, 2019 08:59
[2019-01-24] MEDS: FAMOTIDINE 20 MG/2 ML VIAL IVP SCH (09:01)
--- NOTE | 2019-01-24 09:12 | PDOC ---
LYLE YANEZ COORDINATOR SKILL TRAINING PROGRAM 01/24/19 0912: SURGICAL PROGRESS NOTE Subjective up in chair pain, waxes and wanes some nausea Vital Signs Vital Signs Date Time Temp Pulse Resp B/P (MAP) Pulse Ox O2 Delivery O2 Flow Rate FiO2 01/24/19 08:00 Room Air 01/24/19 07:58 20 97 01/24/19 07:00 98.2 62 131/75 (93) 98.2 I&O Intake and Output 01/24/19 07:00 Intake Total 3675.02 ml Output Total 0 ml Balance 3675.02 ml IV Total 3675.02 ml Output Urine Total 0 ml # Voids 10 # Bowel Movements 1 General: Alert, Oriented X3, Cooperative, No acute distress Abdomen: Soft Labs Laboratory Tests Test 01/23/19 05:25 01/24/19 03:30 White Blood Count 15.8 x10^3/uL (4.0-11.0) Red Blood Count 4.53 x10^6/uL (3.50-5.40) Hemoglobin 12.0 g/dL (12.0-15.5) Hematocrit 36.4 % (36.0-47.0) Mean Corpuscular Volume 80 fL (79-100) Mean Corpuscular Hemoglobin 26 pg (25-35) Mean Corpuscular Hemoglobin Concent 33 g/dL (31-37) Red Cell Distribution Width 14.6 % (11.5-14.5) Platelet Count 391 x10^3/uL (140-400) Neutrophils (%) (Auto) 72 % (31-73) Lymphocytes (%) (Auto) 20 % (24-48) Monocytes (%) (Auto) 7 % (0-9) Eosinophils (%) (Auto) 1 % (0-3) Basophils (%) (Auto) 1 % (0-3) Neutrophils # (Auto) 11.4 x10^3/uL (1.8-7.7) Lymphocytes # (Auto) 3.2 x10^3/uL (1.0-4.8) Monocytes # (Auto) 1.1 x10^3/uL (0.0-1.1) Eosinophils # (Auto) 0.1 x10^3/uL (0.0-0.7) Basophils # (Auto) 0.1 x10^3/uL (0.0-0.2) Sodium Level 145 mmol/L (136-145) 145 mmol/L (136-145) Potassium Level 3.9 mmol/L (3.5-5.1) 3.7 mmol/L (3.5-5.1) Chloride Level 107 mmol/L (98-107) 109 mmol/L (98-107) Carbon Dioxide Level 27 mmol/L (21-32) 25 mmol/L (21-32) Anion Gap 11 (6-14) 11 (6-14) Blood Urea Nitrogen 23 mg/dL (7-20) 20 mg/dL (7-20) Creatinine 1.2 mg/dL (0.6-1.0) 1.1 mg/dL (0.6-1.0) Estimated GFR (Cockcroft-Gault) 49.5 54.7 Glucose Level 99 mg/dL (70-99) 103 mg/dL (70-99) Calcium Level 9.6 mg/dL (8.5-10.1) 9.5 mg/dL (8.5-10.1) Laboratory Tests Test 01/24/19 03:30 Sodium Level 145 mmol/L (136-145) Potassium Level 3.7 mmol/L (3.5-5.1) Chloride Level 109 mmol/L (98-107) Carbon Dioxide Level 25 mmol/L (21-32) Anion Gap 11 (6-14) Blood Urea Nitrogen 20 mg/dL (7-20) Creatinine 1.1 mg/dL (0.6-1.0) Estimated GFR (Cockcroft-Gault) 54.7 Glucose Level 103 mg/dL (70-99) Calcium Level 9.5 mg/dL (8.5-10.1) Problem List Problems Medical Problems: (1) Pleural effusion Status: Acute Assessment/Plan awaiting tx to [facility] ELICIA WELLINGTON MD 01/24/19 1041: SURGICAL PROGRESS NOTE Assessment/Plan Pt seen and examined. Agree with Ms. Yanez's note Pt with some pain and nausea pain controlled should be transferring to now. If not, will investigate stenting. GAURANG MENDOZA MD 01/24/19 1239: SURGICAL PROGRESS NOTE Assessment/Plan pt seen this AM as above has been tx to [facility] LYLE YANEZ COORDINATOR SKILL TRAINING PROGRAM Jan 24, 2019 09:12 ELICIA WELLINGTON MD Jan 24, 2019 10:41 GAURANG MENDOZA MD Jan 24, 2019 12:35
--- NOTE | 2019-01-24 10:33 | NUR ---
SS following for discharge planning. transfer requested over the weekend. Pt accepted at . Packet, transfer form, and ambulance form on chart. SS received phone contact from Sayda at transfer team, , stating that pt has been assigned Bed# [id number] Bed 1. She requested report be called into [phone]. RNPorfirio, notified. Pt will transfer to via [facility] ambulance.
--- NOTE | 2019-01-24 10:42 | PDOC ---
Renal-Progress Notes Subjective Notes Notes NAUSEA History of Present Illness Hx of present illness STABLE Vitals Vitals Vital Signs Date Time Temp Pulse Resp B/P (MAP) Pulse Ox O2 Delivery O2 Flow Rate FiO2 01/24/19 10:05 18 Room Air 01/24/19 07:58 97 01/24/19 07:00 98.2 62 131/75 (93) 98.2 Weight Weight [ ] I.O. Intake and Output Intake and Output 01/24/19 07:00 Intake Total 3675.02 ml Output Total 0 ml Balance 3675.02 ml IV Total 3675.02 ml Output Urine Total 0 ml # Voids 10 # Bowel Movements 1 Labs Labs Laboratory Tests Test 01/24/19 03:30 Sodium Level 145 mmol/L (136-145) Potassium Level 3.7 mmol/L (3.5-5.1) Chloride Level 109 mmol/L (98-107) Carbon Dioxide Level 25 mmol/L (21-32) Anion Gap 11 (6-14) Blood Urea Nitrogen 20 mg/dL (7-20) Creatinine 1.1 mg/dL (0.6-1.0) Estimated GFR (Cockcroft-Gault) 54.7 Glucose Level 103 mg/dL (70-99) Calcium Level 9.5 mg/dL (8.5-10.1) Micro Micro Microbiology 01/21/19 Urine Culture - Final, Complete 01/21/19 Urine Culture Result 1 (ALYSSA) - Final, Complete 01/21/19 Blood Culture - Preliminary, Resulted NO GROWTH AFTER 2 DAYS Review of Systems Constitutional: yes: alert, oriented Ears/Nose/Throat: Yes: no symptom reported Eyes: Yes: no symptom reported Pulmonary: Yes no symptom reported Cardiovascular: Yes no symptom reported Gastrointestional: Yes: no symptom reported Genitourinary: Yes: no symptom reported Musculoskeletal: Yes: no symptom reported Skin: Yes no symptom reported Psychiatric/Neurological: Yes: no symptom reported Endocrine: Yes: no symptom reported Physical Exam General Appearance: no apparent distress Skin: warm Respiratory: bilateral CTA Heart: S1S2, RRR Abdomen: soft, bowel sounds present Genitourinary: bladder flat Extremities: pulses present Neurology: alert Assessment Assessment MP NOHELIA RESOLVING WITH CR DOWN TO 1. DEHYDRATION PLEURAL EFFUSION LEUCOCYTOSIS S/P GASTRIC SLEEVE IN NOV ? PLEURITIS PLAN HYDRATION HOLD HER [employer] TRANSFER PLANS NOTED WILL SIGN OFF DAMIÁN GUTIÉRREZ MD Jan 24, 2019 10:41
--- NOTE | 2019-01-24 11:00 | NUR ---
Report called to DAINA Wild at [facility]. EMS scheduled to pick patient up. Pt aware of new room at [facility].
--- NOTE | 2019-01-24 11:17 | PDOC3 ---
Discharge Summary Visit Information Date of Admission: Jan 21, 2019 Date of Discharge: Jan 24, 2019 Final Diagnosis acute abd pain Pleural effusion Recent gastric sleeve surgery with abdominal pain and small perforation in the proximal stomach. General Surgery, Dr. Donaldson was consulted in the ER and he will follow. Air-fluid collection above the proximal stomach NOHELIA, vasomotor, morbid obesity, BMI 44 Problems Medical Problems: (1) Pleural effusion Status: Acute Brief Hospital Course Allergies Allergies Coded Allergies Type Severity Reaction Last Updated Verified amlodipine Allergy Intermediate Swelling 11/25/17 Yes biotin Allergy Intermediate Rash 11/25/17 Yes ondansetron Allergy Intermediate 01/22/19 Yes phentermine Adverse Reaction Mild agitation 11/25/17 Yes Vital Signs Vital Signs Date Time Temp Pulse Resp B/P (MAP) Pulse Ox O2 Delivery O2 Flow Rate FiO2 01/24/19 11:00 98.1 62 18 137/81 (99) 95 Room Air 98.1 Lab Results Laboratory Tests Test 01/23/19 05:25 01/24/19 03:30 White Blood Count 15.8 x10^3/uL (4.0-11.0) Red Blood Count 4.53 x10^6/uL (3.50-5.40) Hemoglobin 12.0 g/dL (12.0-15.5) Hematocrit 36.4 % (36.0-47.0) Mean Corpuscular Volume 80 fL (79-100) Mean Corpuscular Hemoglobin 26 pg (25-35) Mean Corpuscular Hemoglobin Concent 33 g/dL (31-37) Red Cell Distribution Width 14.6 % (11.5-14.5) Platelet Count 391 x10^3/uL (140-400) Neutrophils (%) (Auto) 72 % (31-73) Lymphocytes (%) (Auto) 20 % (24-48) Monocytes (%) (Auto) 7 % (0-9) Eosinophils (%) (Auto) 1 % (0-3) Basophils (%) (Auto) 1 % (0-3) Neutrophils # (Auto) 11.4 x10^3/uL (1.8-7.7) Lymphocytes # (Auto) 3.2 x10^3/uL (1.0-4.8) Monocytes # (Auto) 1.1 x10^3/uL (0.0-1.1) Eosinophils # (Auto) 0.1 x10^3/uL (0.0-0.7) Basophils # (Auto) 0.1 x10^3/uL (0.0-0.2) Sodium Level 145 mmol/L (136-145) 145 mmol/L (136-145) Potassium Level 3.9 mmol/L (3.5-5.1) 3.7 mmol/L (3.5-5.1) Chloride Level 107 mmol/L (98-107) 109 mmol/L (98-107) Carbon Dioxide Level 27 mmol/L (21-32) 25 mmol/L (21-32) Anion Gap 11 (6-14) 11 (6-14) Blood Urea Nitrogen 23 mg/dL (7-20) 20 mg/dL (7-20) Creatinine 1.2 mg/dL (0.6-1.0) 1.1 mg/dL (0.6-1.0) Estimated GFR (Cockcroft-Gault) 49.5 54.7 Glucose Level 99 mg/dL (70-99) 103 mg/dL (70-99) Calcium Level 9.6 mg/dL (8.5-10.1) 9.5 mg/dL (8.5-10.1) Laboratory Tests Test 01/24/19 03:30 Sodium Level 145 mmol/L (136-145) Potassium Level 3.7 mmol/L (3.5-5.1) Chloride Level 109 mmol/L (98-107) Carbon Dioxide Level 25 mmol/L (21-32) Anion Gap 11 (6-14) Blood Urea Nitrogen 20 mg/dL (7-20) Creatinine 1.1 mg/dL (0.6-1.0) Estimated GFR (Cockcroft-Gault) 54.7 Glucose Level 103 mg/dL (70-99) Calcium Level 9.5 mg/dL (8.5-10.1) Brief Hospital Course Ms. Albert is a 43 old female, admit with acute pain, s/p recent gastric sleeve. had acute rnal failrue, perf noted above pleural effusion from PER transfer to [facility] bariatric surg team pain OK cont PPN Discharge Information Condition at Discharge: Improved Follow Up: Weeks Disposition/Orders: D/C to Another Facility Scheduled Levothyroxine Sodium (Synthroid) 75 Mcg Tablet, 1 TAB PO DAILY for Hypothyroid, #30 Ref 5 (Reported) Entered as Reported by: PAUL SORTO on 01/24/19801 Last Action: New Order on 01/24/19801 by PAUL SORTO Mupirocin Calcium (Bactroban Cream) 15 Gm Cream..g., 1 GIANCARLO TP TID, #30 Prescribed by: Mayra Lee APRN on 11/25/17 3470 Patient Instructions Patient Instructions > 30 min discussed face to face AARON CARRERA MD Jan 24, 2019 11:17
--- NOTE | 2019-01-24 11:42 | NUR ---
Pt left unit via [facility] to go to [facility]. Last called and notified.
== END 2019-01-24 11:45 | disposition short-term general hospital (02) | DRG 393 ==
LOC: ER 18:18 → 5 SOUTH 22:20 → 1 WEST ICU 01-22 18:46
PROVIDERS: ADMIT Internal Medicine; ATTEND Internal Medicine
DX: K95.89 Other complications of other bariatric procedure (principal); K63.1 Perforation of intestine (nontraumatic); N17.9 Acute kidney failure, unspecified; J90 Pleural effusion, not elsewhere classified; Z68.42 Body mass index [BMI] 45.0-49.9, adult; D72.829 Elevated white blood cell count, unspecified; E03.9 Hypothyroidism, unspecified; E66.01 Morbid (severe) obesity due to excess calories; E86.0 Dehydration; F17.210 Nicotine dependence, cigarettes, uncomplicated; I10 Essential (primary) hypertension; Z98.84 Bariatric surgery status; Z88.8 Allergy status to other drugs, medicaments and biological substances; Y83.8 Other surgical procedures as the cause of abnormal reaction of the patient, or of later complication, without mention of misadventure at the time of the procedure
CPT/HCPCS: 36415; 71045; 74176; 78582; 80048; 80053; 81001; 81025; 83605; 83690; 83880; 84484; 85007; 85025; 85610; 87040; 87086; 90471; 90686; 93005; 96365; 96367; 96374; 96375; 99406; A9540; A9558; J0456; J0696; J0780; J1170; J2060; J2543; J3010; J3490; J7030; J7040; Q9966; 99285-25; G0378